=== PATIENT | male | born 1940 | race Caucasian/White ===

== ENCOUNTER 2017-04-10 16:41 | Inpatient (IN) | payer OTHER ==
[~2017-04-10] VITALS: Ht 180.3 cm; Wt 72.8 kg
[2017-04-10] VITALS (16 sets, daily range): BP systolic 125–145; BP diastolic 63–80; PULSE 79–113; TEMP 36.8–37.3; O2SAT 95–100; Ht 180.3 cm; Wt 72.8 kg
[~2017-04-10 16:41] MED LIST: ASPI-435 PO; INSDGI SC; MULT-884 PO; TAMS0.4C38 PO; VITA400C15 PO; ZCRT/40 PO
[2017-04-10] MEDS ORDERED: LISI-729 PO (17:05)
[2017-04-10] MEDS ORDERED: SODIUM CHLORIDE 0.9% 1000ML 1,000 ML IV STA (17:05)
[2017-04-10 17:53] LABS: PARTIAL THROMBOPLASTIN RATIO 0.8; PROTHROMBIN TIME (PATIENT) 10.7 SECONDS (9.0-12.0)
[2017-04-10 17:57] LABS: HEMATOCRIT 12.3 % (42-52); MEAN CELL VOLUME 91.1 fL (80-100); MEAN CORPUSCULAR HEMOGLOBIN 28.9 pg (25-34); MEAN CORPUSCULAR HGB CONC 31.7 g/dl (32-36); MEAN PLATELET VOLUME 8.2 fL (7.4-10.4); PLATELET COUNT 402 K/uL (130-400); RED BLOOD COUNT 1.35 M/uL (4.7-6.1); WHITE BLOOD COUNT 5.75 K/uL (4.8-10.8)
[2017-04-10] MEDS ORDERED: PANTOprazole INJ 80 MG in DEXTROSE 5% 100ML IV SCH (18:00)
[2017-04-10 18:03] LABS: BASO % 0.3 %; BASO ABS # 0.02 K/uL (0-0.2); COMPLETE YES; EOS % 0.5 %; HYPOCHROMIA PRESENT; IG% 0.2 %; LYMPH % 17.4 %; MONO % 10.4 %; NEUT % 71.2 %; POLYCHROMASIA 1+
[2017-04-10] MEDS ORDERED: PANTOprazole INJ 40 MG in DEXTROSE 5% 100ML IV SCH (18:15)
[2017-04-10] MEDS ORDERED: NSS + 20MEQ KCL 1000ML 1,000 ML IV SCH (18:18)
[2017-04-10 18:27] LABS: ALT/SGPT 18 U/L (12-78); AST/SGOT 15 U/L (15-37); BLOOD UREA NITROGEN 44 mg/dl (7-18); BUN/CREATININE RATIO 19.9 (10-20); CALCIUM 8.3 mg/dl (8.5-10.1); CARBON DIOXIDE 24 mmol/L (21-32); CHLORIDE 109 mmol/L (98-107); GLUCOSE 166 mg/dl (70-99); POTASSIUM 4.7 mmol/L (3.5-5.1); SODIUM 141 mmol/L (136-145)
[2017-04-10] MEDS ORDERED: ONDANSETRON INJ 2 MG/ML 2 ML VIAL IV PRN ×2 (18:30→19:00)
[2017-04-10] MEDS ORDERED: ALUMINUM/MAGNESIUM/SIMETH (MAALOX MAX) 30 ML UDC PO PRN (18:30)
[2017-04-10] MEDS ORDERED: ENOXAPARIN 40 MG/0.4 ML SYR SC SCH (18:30)
[2017-04-10 18:32] LABS: ALKALINE PHOSPHATASE 42 U/L (45-117)
[2017-04-10] MEDS ORDERED: IV FLUIDS COMPLETED PRN (18:45)
[2017-04-10] MEDS ORDERED: NITROGLYCERIN 0.4 MG SL PER TAB CHARGE SL PRN (19:00)
[2017-04-10] MEDS ORDERED: MoRPHine SULFATE 2 MG/ML CARP IV PRN (19:00)
[2017-04-10] MEDS ORDERED: DEXTROSE 50% 50 ML SYR IV PRN (19:15)
[2017-04-10] MEDS ORDERED: GLUCAGON FOR INJ 1 MG VIAL SQ PRN (19:15)
[2017-04-10] MEDS ORDERED: GLUCOSE 40% GEL 15 GM TUBE PO PRN (19:15)
[2017-04-10] MEDS ORDERED: GLUCOSE 10 TABS/TUBE PO PRN (19:15)
--- NOTE | 2017-04-10 20:04 | Critical Care Consultation ---
Critical Care Consultation Date of Consultation: Apr 10, 2017. Attending Physician: Dr. Kraft Reason for Consultation: Anemia secondary to GI Bleeding History of Present Illness Héctor Orosco is a 76 yo male with recent past medical history of prostatic CA; treatment with Lupron was attempted however patient could not tolerate hot flashes and its hyperglycemia. Therefore he underwent 44 treatments of radiation. Last treatment was 12/21/2015. Hx is also signifcant for DM2 with retinopathy, CKD stage III, and hyperlipidemia. He reports that approximately 1 -1/2 months ago he started to experience intermittent bloody stools that were dark and loose. He was at first not alarmed due to a history of hemorrhoids; however ,more recently he states that there has been more blood than stool. He went to his family doctor today based on recent symptoms of feeling dizzy and shortness of breath with minimal exertion. He stated to her that he estimates 75% of what he passes per the rectum his blood. He does pass gas during this period of time; however, he denies associated abdominal pain. He states to me today that since this illness has started his blood sugars have been out of control. He takes 20 units of Lantus at night only. He notes that his sugars lately have been greater than 200. He has had no change in urination. Once seen in the emergency department, patient's hemoglobin was determined to be 3.9. He was consented and ordered 4u PRBCs to transfuse immediately. Dr. Lino and I presented at bedside to examine pt. There was a thorough discussion about code status. Héctor stated, "I am not scared to go, I have had 74 good ones." He states he does not want any heroic measures, no CPR, no intubation, no central access. He was then transferred to the ICU with the first of four units transfusing. Pt denies fever, chills, trouble breathing, dypnea at rest, or cough. He denies chest pain/pressure, awareness of tachyarrhythmias, or history of them. He denies ever having a DVT of PE. He denies recent changes in urinary habits, numbness, or tingling. He admits to hematochezia time 1.5m. He has not had any loss of consciousness or falls. Past Medical/Surgical History Medical Problems: Anxiety and depression Diabetes: Type I Diabetic Retinopathy Kidney disease Overdose of anticonvulsant Profound anemia Hx of Prostate CA with radiation treatment Obstructive Uropathy Surgical History: Dental/Eye Procedures Family History Diabetes mellitus FH: cancer Social History Smoking Status: Never Smoker Smokeless Tobacco Use: No Alcohol Use: none Drug Use: none Marital Status: Housing Status: lives with family Occupation Status: retired Allergies Coded Allergies: No Known Allergies (Unverified , 04/10/17) Home Medications Scheduled Aspirin (Aspirin 81), 1 TAB PO DAILY Insulin Glargine (Lantus), 20 UNITS SC HS Lisinopril (Zestril), 5 MG PO QAM Multiple Vitamin (Multi Vitamin Daily), 1 TAB PO DAILY Simvastatin (Zocor), 1 TAB PO DAILY Current Inpatient Medications Current Inpatient Medications Medications (Trade) Dose Ordered Sig/Martha Route Start Time Stop Time Status Last Admin Dose Admin Pantoprazole Sodium 40 mg/ Dextrose 100 ml @ 20 mls/hr Q5H IV 04/10/17 18:15 04/10/17 23:14 04/10/17 18:07 20 MLS/HR Miscellaneous (Iv Fluids Completed) 1 ea PRN PRN N/A 04/10/17 18:45 04/10/18 18:44 Sodium Chloride 1,000 ml @ 80 mls/hr [id number] IV 04/10/17 18:58 05/10/17 18:57 UNV Nitroglycerin (Nitrostat Tab) 0.4 mg UD PRN SL 04/10/17 19:00 05/10/17 18:59 Ondansetron HCl (Zofran Inj) 4 mg Q6H PRN IV 04/10/17 19:00 05/10/17 18:59 Pantoprazole Sodium 40 mg/ Syringe 10 ml @ 5 mls/min BID IV 04/10/17 21:00 05/10/17 20:59 UNV Morphine Sulfate (MoRPHine SULFATE INJ) 2 mg Q2H PRN IV 04/10/17 19:00 04/24/17 18:59 Insulin Aspart (novoLOG ASPART) SLIDING SCALE G... ACHS SC 04/10/17 21:00 05/10/17 20:59 UNV Furosemide 20 mg/ Syringe 2 ml @ 4 mls/min UD ONCE IV 04/10/17 19:00 04/10/17 19:01 UNV Glucose (Glucose 40% Gel) 15-30 GRAMS 15 GRAMS... UD PRN PO 04/10/17 19:15 05/10/17 19:14 Glucose (Glucose Chew Tab) 4-8 Tablets 4 Tabl... UD PRN PO 04/10/17 19:15 05/10/17 19:14 Dextrose (Dextrose 50% 50ML Syringe) 25-50ML OF 50% DW IV FOR... UD PRN IV 04/10/17 19:15 05/10/17 19:14 Glucagon (Glucagon Inj) 1 mg UD PRN SQ 04/10/17 19:15 05/10/17 19:14 Review of Systems 12 systems reviewed and negative other than previously mentioned in the HPI. Physical Exam Date Time Temp Pulse Resp B/P (MAP) Pulse Ox O2 Delivery O2 Flow Rate FiO2 04/10/17 19:43 36.8 99 18 144/69 98 04/10/17 19:27 37.1 95 16 131/66 100 04/10/17 18:59 97 18 126/62 100 Room Air 04/10/17 17:28 92 04/10/17 17:22 100 Room Air 04/10/17 16:44 37.0 103 18 118/56 98 Room Air Vital Signs - as noted Laboratory Data - as noted Physical Exam: General - NAD, Very Pleasant resting in bed with at side Eyes - PERRL, EOMI No icterus, gaze conjugate ENT - Mucosa moist, no lesions or candidiasis Neck - Supple, trachea midline, no masses or lymphadenopathy, no JVD or bruits Lungs - No paradoxical chest wall movement, clear to auscultation bilaterally, no wheezes, rales, or rhonchi Heart - Normal Sinus to Sinus Tachycardia, No murmur, rubs, clicks, or gallops appreciated Abdomen - BS present, no bruits noted, tympanic to percussion, soft, nontender, nondistended, no organomegaly Extremities - No edema, pedal pulses intact Neuro - A&OX3 Strength extremities equal and appropriate bilaterally Reflexes: normal and equal Cerebellum: Finger to nose appropriate CN:PERRL, EOMI, no facial asymmetry, uvula/tongue midline Laboratory Results Last 24 Hours Test 04/10/17 17:25 04/10/17 19:29 White Blood Count 5.75 K/uL Red Blood Count 1.35 M/uL Hemoglobin 3.9 g/dL 3.7 g/dL Hematocrit 12.3 % 12.0 % Mean Corpuscular Volume 91.1 fL Mean Corpuscular Hemoglobin 28.9 pg Mean Corpuscular Hemoglobin Concent 31.7 g/dl Platelet Count 402 K/uL Mean Platelet Volume 8.2 fL Neutrophils (%) (Auto) 71.2 % Lymphocytes (%) (Auto) 17.4 % Monocytes (%) (Auto) 10.4 % Eosinophils (%) (Auto) 0.5 % Basophils (%) (Auto) 0.3 % Neutrophils # (Auto) 4.09 K/uL Lymphocytes # (Auto) 1.00 K/uL Monocytes # (Auto) 0.60 K/uL Eosinophils # (Auto) 0.03 K/uL Basophils # (Auto) 0.02 K/uL RDW Standard Deviation 46.4 fL RDW Coefficient of Variation 13.8 % Immature Granulocyte % (Auto) 0.2 % Immature Granulocyte # (Auto) 0.01 K/uL Polychromasia 1+ Hypochromasia PRESENT Prothrombin Time 10.7 SECONDS Prothromb Time International Ratio 1.0 Activated Partial Thromboplast Time 21.1 SECONDS Partial Thromboplastin Ratio 0.8 Sodium Level 141 mmol/L Potassium Level 4.7 mmol/L Chloride Level 109 mmol/L Carbon Dioxide Level 24 mmol/L Anion Gap 8.0 mmol/L Blood Urea Nitrogen 44 mg/dl Creatinine 2.20 mg/dl Est Creatinine Clear Calc Drug Dose 29.2 ml/min Estimated GFR () 33.0 Estimated GFR (Non- 28.5 BUN/Creatinine Ratio 19.9 Random Glucose 166 mg/dl Calcium Level 8.3 mg/dl Total Bilirubin 0.3 mg/dl Direct Bilirubin < 0.1 mg/dl Aspartate Amino Transf (AST/SGOT) 15 U/L Alanine Aminotransferase (ALT/SGPT) 18 U/L Alkaline Phosphatase 42 U/L Troponin I 0.045 ng/ml Total Protein 6.4 gm/dl Albumin 3.4 gm/dl Lipase 123 U/L Diagnostic Results No Imaging this admission Assessment & Plan GI: * Hematochezia x 1.5months; Hgb: 3.9 * Protonix Bolus and Drip: Continue * GI Consult pending: Colonoscopy is tentatively planned from Thursday * NPO except meds * GI prophylaxis: Protonix drip in place Heme: * Hgb 3.9 * Transfuse 4u PRBCs Now, will determine additional pending H&H results * HR, O2 Sats, and BP stable * Monitor closely for transfusion reaction * H&H q6h * DVT Prophylaxis: No chemical prophylaxis in the setting of GI bleed; SCDs /Electrolytes: * Acute Renal Failure on Chronic Kidney Dz * Cr. 2.2 (Baseline 1.8) * Follow daily labs & replace electrolytes per protocol * Continue Fluid Resuscitation: NSS @ 80mL/hr * Monitor I&O's Endocrine: * Type 1 DM: Accuchecks q 6hrs * Hold Lantus and begin Sliding Scale Coverage (NPO) * Accu-Checks per protocol, started insulin infusion for 2 blood sugars greater than 180 CV: * Monitor on telemetry * NSR on EKG and Telemetry * Holding Statin currently Pulm: * Supplemental oxygen as required * Adequate Saturations currently * Monitor on Telemetry I.D: * WBC: 5.75 & Afebrile * No indication for Abx at this time * Monitor fever curve Neuro: * Pain well controlled * Monitor for changes Access: Maintain at minimum to 18-gauge PIV's; patient denied central access CODE STATUS: Level [address] Lino CCT: 47 Minutes; This time is exclusive of all separately billable procedures. Thank you for involving us in the care of this patient. Please refer to Dr. Sudarshan Lino's addendum for further recommendations. I have personally evaluated and examined this patient. I agree with assessment and plan of Italia Reyna/W Dr. Sargent, slow GI bleeding to achieve this level of anemia. No EKG changes suggestive of ischemia.
--- NOTE | 2017-04-10 20:07 | HISTORY & PHYSICAL EXAMINATION ---
DATE OF ADMISSION: 04/10/2017 CHIEF COMPLAINT: Rectal bleeding. HISTORY OF PRESENT ILLNESS: This is a 76-year-old male with past medical history significant for diabetes, hyperlipidemia, chronic kidney disease stage III, history of diabetic retinopathy, history of prostatic cancer, presents with rectal bleed. The patient was diagnosed prostate cancer, but could not tolerate Lupron due to hot flushes and hyperglycemia and he received external beam radiation 44 sessions finished in December 2015 and apparently was doing okay,until since last about 4 weeks, he was developing bright blood per rectum on and off. Initially some small amounts and he thought he has hemorrhoids, but since last couple of weeks it is becoming more frequent and more significant and he is also developing dizziness and shortness of breath on minimal exertion and could not do his yard work when he went to his family doctor today. Because of his significant symptoms and rectal bleeding and history of radiation to his prostate, family doctor referred to the ER and in the ER, his labs showed his hemoglobin of 3.9, and creatinine of 2.2 and we were called for admission. Currently, the patient is resting comfortably, hemodynamically stable. Denies any abdominal pain. No nausea, no vomiting, no chest pain, complains of short of breath on minimal exertion, dizziness and has some headaches, no blurred vision, no cough, no fever, no chills. Appetite is okay, but seems comfortable.Last rectal bleeding was today morning at 8am. ALLERGIES: No known drug allergies. PAST MEDICAL HISTORY: As mentioned above. PAST SURGICAL HISTORY: Dental surgeries, eye procedures. MEDICATIONS: The patient is on simvastatin 40 mg p.o. daily, Lantus 20 units at bedtime, lisinopril 2.5 mg p.o. daily, aspirin 81 mg p.o. daily. FAMILY HISTORY: Significant for father had cancer, heart disorder. Mother had heart disorder. Aunt has diabetes. Maternal grandmother has diabetes. Son has glaucoma. SOCIAL HISTORY: Never smoked and alcohol rarely. No drug use. Lives with his . REVIEW OF SYMPTOMS: As per HPI. Rest of review of symptoms negative. PHYSICAL EXAMINATION: GENERAL: The patient is of moderate build, not in distress. VITAL SIGNS: Temperature 37, pulse 92, respiratory rate 18, blood pressure 118/56, oxygen 100% on room air. HEENT: Pallor present. No icterus. Pupils equal, round, and reactive to light. NECK: No JVD, no neck masses, no carotid bruits. CARDIOVASCULAR: S1, S2 heard, regular rate and rhythm, no murmur, no gallop. RESPIRATORY SYSTEM: Clear to auscultation bilaterally. No wheezing, no crackles. ABDOMEN: Soft, bowel sounds present. Nontender. No distention. CENTRAL NERVOUS SYSTEM: Cranial nerves II-XII are grossly intact. Nonfocal. EXTREMITIES: No edema, no erythema. LABORATORY DATA: WBC 5.7, hemoglobin 3.9, hematocrit 12.3, platelets 402. Sodium 141, potassium 4.7, chloride 109 , bicarbonate 24, BUN 44, creatinine 2.2, serum glucose 166, calcium 8.3. Total bilirubin 0.3, direct bilirubin less than 0.1, AST 15, ALT 18, alkaline phosphatase 42, troponin I 0.045. Lipase 123. PT 10.7, INR 1, PTT 21.1. ASSESSMENT AND PLAN: This is a 76-year-old male who presents with profound anemia. 1. Profound anemia, hemoglobin of 3.9. 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 The patient never had colonoscopies in the past. We will admit to ICU to close monitor.Will hold aspirin. Will transfuse PRBCs, recheck H &H q. 6 hours. IV Protonix 40 b.i.d. .Notified GI. The patient is hemodynamically stable. Plan is for colonoscopy on Thursday unless the patient deteriorates and advised for CAT scan of the abdomen and pelvis whenever the patient is more stable. Critical Care consulted. 2. History of diabetes Hba1c 6.7 in December 2016. We will hold his Lantus. We will place him on insulin sliding scale as the patient is currently n.p.o. and closely monitor his blood sugars. 3. History of hyperlipidemia. We will hold the statin for now. 4. Acute renal failure and chronic kidney disease, stage III, baseline creatinine around 1.8, creatinine of 2.2 on presentation, getting PRBCs transfusion and gentle fluids, we will follow the labs in a.m. 5. Deep venous thrombosis prophylaxis, SCDs. 6. Disposition: Close monitoring in ICU now. Level of code status, level 3. MTDD
[2017-04-10 20:32] LABS: URINE APPEARANCE CLEAR (CLEAR); URINE BILIRUBIN NEG (NEG); URINE COLOR YELLOW; URINE NITRITE NEG (NEG); UROBILINOGEN NEG (NEG)
[2017-04-10 20:34] LABS: MANUAL MICROSCOPIC REQUIRED? NO; REVIEW REQ? NO
[2017-04-10] MEDS ORDERED: INSULIN ASPART 100 UNITS/ML 3 ML PEN SC SCH (21:00)
[2017-04-10] MEDS ORDERED: PANTOprazole INJ 40 MG in SYRINGE 0 ML IV SCH (21:00)
[2017-04-10] MEDS ORDERED: FUROSEMIDE INJ 20 MG in SYRINGE 0 ML IV ONE (21:00)
[2017-04-10] MEDS ORDERED: INSULIN GLARGINE SOLOSTAR 100 UNITS/ML 3 ML PEN SC STA (22:23)
[2017-04-10] MEDS: SODIUM CHLORIDE 0.9% 1000ML 1,000 ML IV SCH (22:36)
[2017-04-10] MEDS: PANTOprazole INJ 40 MG in DEXTROSE 5% 100ML IV SCH (22:36)
[2017-04-11] VITALS (17 sets, daily range): BP systolic 111–151; BP diastolic 60–87; PULSE 61–98; TEMP 36.6–37.2; O2SAT 95–100
--- NOTE | 2017-04-11 00:37 | EMERGENCY ROOM VISIT NOTE ---
History Report prepared by Brian: Dominik Lopez Under the Supervision of: Dr. Awais Perry D.O. First contact with patient: 17:03 Chief Complaint: REFERRED BY DOCTOR Stated Complaint: DIZZY, DIARRHEA, FATIGUE- PHYSICIAN REFERRED History of Present Illness The patient is a 76 year old male who presents to the Emergency Room with complaints of intermittent diarrhea beginning two months ago. The patient states that his diarrhea consists of bright red blood, and he has anywhere from 6 to 10 episodes a day. He reports that he follows up with his oncologist because he was treated for prostate cancer. The patient notes that his last dose of treatment was 16 months ago. He states that he has not been backpacking , camping, travelling, or drinking from streams recently. The patient complains of weakness and fatigue. Pt denies headache, change in vision, fevers, chest pain, shortness of breath, nausea, vomiting, pain with urination, and melena. He states that he has only had a prostate exam, never a colonoscopy. Source of History: patient Onset: 2 months ago Position: buttock Quality: other (diarrhea) Timing: intermittent Associated Symptoms: + fatigue, + weakness Review of Systems See HPI for pertinent positives & negatives. A total of 10 systems reviewed and were otherwise negative. Past Medical & Surgical Medical Problems: (1) Anxiety and depression (2) Diabetes (3) Kidney disease (4) Overdose of anticonvulsant (5) Profound anemia Family History Diabetes mellitus FH: cancer Social History Smoking Status: Never Smoker Alcohol Use: none Drug Use: none Marital Status: Housing Status: lives with significant other Occupation Status: retired Current/Historical Medications Scheduled Aspirin (Aspirin 81), 1 TAB PO DAILY Insulin Glargine (Lantus), 20 UNITS SC HS Lisinopril (Zestril), 5 MG PO QAM Multiple Vitamin (Multi Vitamin Daily), 1 TAB PO DAILY Simvastatin (Zocor), 1 TAB PO DAILY Allergies Coded Allergies: No Known Allergies (Unverified , 04/10/17) Physical Exam Vital Signs Date Time Temp Pulse Resp B/P (MAP) Pulse Ox O2 Delivery O2 Flow Rate FiO2 04/10/17 18:59 97 18 126/62 100 Room Air 04/10/17 17:28 92 04/10/17 17:22 100 Room Air 04/10/17 16:44 37.0 103 18 118/56 98 Room Air Physical Exam GENERAL: alert, ill appearing, well nourished, no distress, non-toxic, pale, sitting up in bed EYE EXAM: normal conjunctiva, PERRL and EOM's grossly intact OROPHARYNX: no exudate, no erythema, lips, buccal mucosa, and tongue normal and mucous membranes are moist NECK: supple, no nuchal rigidity, no adenopathy, non-tender LUNGS: Clear to auscultation. Normal chest wall mechanics HEART: no murmurs, S1 normal and S2 normal ABDOMEN: abdomen soft, non-tender, normo-active bowel sounds, no masses, no rebound or guarding. BACK: Back is symmetrical on inspection and there is no deformity, no midline tenderness, no CVA tenderness. RECTAL: Hem positive stool, no external hemorrhoids SKIN: no rashes and no bruising UPPER EXTREMITIES: upper extremities are grossly normal. LOWER EXTREMITIES: No pitting edema. NEURO EXAM: Normal sensorium, cranial nerves II-XII intact, normal speech, no weakness of arms, no weakness of legs. Medical Decision & Procedures Laboratory Results 04/10/17 17:25 Red Blood Count 1.35, Mean Corpuscular Volume 91.1, Mean Corpuscular Hemoglobin 28.9, Mean Corpuscular Hemoglobin Concent 31.7, Mean Platelet Volume 8.2, Neutrophils (%) (Auto) 71.2, Lymphocytes (%) (Auto) 17.4, Monocytes (%) (Auto) 10.4, Eosinophils (%) (Auto) 0.5, Basophils (%) (Auto) 0.3, Neutrophils # (Auto ) 4.09, Lymphocytes # (Auto) 1.00, Monocytes # (Auto) 0.60, Eosinophils # (Auto ) 0.03, Basophils # (Auto) 0.02 04/10/17 17:25 Test 04/10/17 17:25 White Blood Count 5.75 K/uL (4.8-10.8) Red Blood Count 1.35 M/uL (4.7-6.1) Hemoglobin 3.9 g/dL (14.0-18.0) Hematocrit 12.3 % (42-52) Mean Corpuscular Volume 91.1 fL (80-100) Mean Corpuscular Hemoglobin 28.9 pg (25-34) Mean Corpuscular Hemoglobin Concent 31.7 g/dl (32-36) Platelet Count 402 K/uL (130-400) Mean Platelet Volume 8.2 fL (7.4-10.4) Neutrophils (%) (Auto) 71.2 % Lymphocytes (%) (Auto) 17.4 % Monocytes (%) (Auto) 10.4 % Eosinophils (%) (Auto) 0.5 % Basophils (%) (Auto) 0.3 % Neutrophils # (Auto) 4.09 K/uL (1.4-6.5) Lymphocytes # (Auto) 1.00 K/uL (1.2-3.4) Monocytes # (Auto) 0.60 K/uL (0.11-0.59) Eosinophils # (Auto) 0.03 K/uL (0-0.5) Basophils # (Auto) 0.02 K/uL (0-0.2) RDW Standard Deviation 46.4 fL (36.4-46.3) RDW Coefficient of Variation 13.8 % (11.5-14.5) Immature Granulocyte % (Auto) 0.2 % Immature Granulocyte # (Auto) 0.01 K/uL (0.00-0.02) Polychromasia 1+ Hypochromasia PRESENT Prothrombin Time 10.7 SECONDS (9.0-12.0) Prothromb Time International Ratio 1.0 (0.9-1.1) Activated Partial Thromboplast Time 21.1 SECONDS (21.0-31.0) Partial Thromboplastin Ratio 0.8 Anion Gap 8.0 mmol/L (3-11) Est Creatinine Clear Calc Drug Dose 29.2 ml/min Estimated GFR () 33.0 Estimated GFR (Non- 28.5 BUN/Creatinine Ratio 19.9 (10-20) Calcium Level 8.3 mg/dl (8.5-10.1) Total Bilirubin 0.3 mg/dl (0.2-1) Direct Bilirubin < 0.1 mg/dl (0-0.2) Aspartate Amino Transf (AST/SGOT) 15 U/L (15-37) Alanine Aminotransferase (ALT/SGPT) 18 U/L (12-78) Alkaline Phosphatase 42 U/L (45-117) Troponin I 0.045 ng/ml (0-0.045) Total Protein 6.4 gm/dl (6.4-8.2) Albumin 3.4 gm/dl (3.4-5.0) Lipase 123 U/L (73-393) Laboratory results per my review. Medications Administered Medications (Trade) Dose Ordered Sig/Martha Route Start Time Stop Time Status Last Admin Dose Admin Sodium Chloride 1,000 ml @ 999 mls/hr Q1H1M STAT IV 04/10/17 17:05 04/10/17 18:05 DC 04/10/17 18:08 999 MLS/HR Pantoprazole Sodium 80 mg/ Dextrose 120 ml @ 480 mls/hr UD IV 04/10/17 18:00 04/10/17 18:14 DC 04/10/17 18:07 480 MLS/HR Pantoprazole Sodium 40 mg/ Dextrose 100 ml @ 20 mls/hr Q5H IV 04/10/17 18:15 04/10/17 20:29 DC 04/10/17 18:07 20 MLS/HR Sodium Chloride 1,000 ml @ 80 mls/hr [id number] IV 04/10/17 18:58 05/10/17 18:57 04/10/17 22:36 80 MLS/HR ECG Indication: weakness Rate (beats per minute): 87 Rhythm: sinus rhythm Findings: no ectopy, other (normal axis) ED Course ED COURSE: Vital signs were reviewed and showed tachycardia. The patients medical record was reviewed The above diagnostic studies were performed and reviewed. ED treatments and interventions as stated above. 1705: Ordered Sodium Chloride 1000 ml @ 999 mls/hr IV 1722: The patient was evaluated in room A04B. A complete history and physical examination was performed. 1758: I reevaluated the patient and discussed his lab results. I consulted him for a blood transfusion. He approved of the transfer. His hemoglobin was 3.9. 1800: Ordered Pantoprazole Sodium 80 mg/Dextrose 120ml @ 480 mls/hr IV 181: Ordered Pantoprazole Sodium 40 mg/Dextrose 100ml @ 20 mls/hr IV 181: I spoke with Aman Rojas and discussed the patient's case. 182: Upon reevaluation, the patient is resting .I discussed my findings with the patient and he understands and agrees with the treatment plan. I discussed the patient's case with Aman Samayoa Hospitalist, and the patient will be evaluated for further treatment. He notes to resuscitate the patient, and he will have a colonoscopy performed on Thursday. Based on the patients age, coexisting illnesses, exam and lab findings the decision to treat as an inpatient was made. The patient remained stable while under my care. Medical Decision Differential diagnoses includes but is not limited to gastritis, peptic ulcer disease, GERD, gallbladder disease, pancreatitis, small bowel obstruction, acute coronary syndrome, pericarditis, ischemic bowel, irritable bowel disease, irritable bowel syndrome, appendicitis, diverticulitis, malignancy, hernia, urinary tract infection, torsion, perforation, trauma, infectious. Medication Reconciliation: I attest that I have personally reviewed the patient' s current medication list. Patient is a 76-year-old male who presents the ER for bright red blood per rectum for the past 1.5 months. Patient is pale and ill-appearing. Upon arrival he is slightly tachycardic. He was given a bolus normal saline. Hemoglobin was 3.9. Patient was ordered type and cross and given PRBCs while in the ER. He was in agreement with this. Patient remained stable while in the ER was admitted to internal medicine for GI bleed with symptomatically anemia. Consults Time Called: 1814 Consulting Physician: Aman Rojas Returned Call: [phone] I spoke with Aman Rojas and discussed the patient's case Additional Consults: Time Called: 1817 Consulted Physician: Aman Samayoa Returned Call: [phone] Additional Comments: I discussed the patient's case with Aman Samayoa, and the patient will be evaluated for further treatment. He notes to resuscitate the patient, and he will have a colonoscopy performed on Thursday. Impression Primary Impression: GI bleed Additional Impression: Symptomatic anemia Critical Care I have personally spent 35 minutes of critical care time in the direct management of this patient. This includes bedside care, interpretation of diagnostic studies, and testing, discussion with consultants, patient, and family members, and other required patient management activities. This 35 minutes is in excess of all separately billable procedures. Scribe Attestation The scribe's documentation has been prepared under my direction and personally reviewed by me in its entirety. I confirm that the note above accurately reflects all work, treatment, procedures, and medical decision making performed by me. Departure Information Dispostion Being Evaluated By Hospitalist Referrals Jerry Cardenas M.D. (PCP) Patient Instructions My [facility] Problem Qualifiers Primary Impression: GI bleed GI bleed type/associated pathology: unspecified gastrointestinal hemorrhage type Qualified Codes: K92.2 - Gastrointestinal hemorrhage, unspecified
[2017-04-11 03:00] LABS: HEMATOCRIT 24.6 % (42-52)
[2017-04-11] MEDS: PANTOprazole INJ 40 MG in DEXTROSE 5% 100ML IV SCH ×5 (03:29→21:52)
[2017-04-11 06:38] LABS: BASO % 0.3 %; BASO ABS # 0.02 K/uL (0-0.2); EOS % 1.8 %; HEMATOCRIT 23.6 % (42-52); IG% 0.2 %; LYMPH % 15.3 %; MEAN CELL VOLUME 87.1 fL (80-100); MEAN CORPUSCULAR HEMOGLOBIN 29.5 pg (25-34); MEAN PLATELET VOLUME 8.9 fL (7.4-10.4); NEUT % 71.4 %; PLATELET COUNT 281 K/uL (130-400); RED BLOOD COUNT 2.71 M/uL (4.7-6.1); WHITE BLOOD COUNT 6.54 K/uL (4.8-10.8)
[2017-04-11] MEDS: INSULIN ASPART 100 UNITS/ML 3 ML PEN SC SCH ×4 (06:45→20:57)
[2017-04-11 06:50] LABS: COMPLETE YES; MEAN CORPUSCULAR HGB CONC 33.9 g/dl (32-36)
[2017-04-11 07:06] LABS: BUN/CREATININE RATIO 18.4 (10-20); CALCIUM 7.8 mg/dl (8.5-10.1); CREATININE 2.1 mg/dl (0.60-1.40); MAGNESIUM 2.2 mg/dl (1.8-2.4); POTASSIUM 4.2 mmol/L (3.5-5.1)
--- NOTE | 2017-04-11 10:53 | GASTROINTESTINAL CONSULTATION ---
DATE OF CONSULTATION: 04/11/2017 DATE OF CONSULTATION: 04/11/2017. CHIEF COMPLAINT: Weakness and bright red blood per rectum. HISTORY OF PRESENT ILLNESS: The patient is a 76-year-old male with past medical history notable for diabetes and prostate cancer who presented to the Emergency Room yesterday evening with a complaint of shortness of breath, dyspnea on exertion and intermittent rectal bleeding. The patient notes that the rectal bleeding symptoms began 4 or 5 months ago. He describes having bright red blood from the rectum with each and every bowel movement. He initially thought that this may be related to hemorrhoids but the symptoms persisted despite evaluation by his primary care provider. The patient denies a history of colonoscopy and has never undergone a screening examination in the past. He does have a history of prostate cancer and underwent radiation therapy which completed approximately 1 year ago. The patient was admitted to the ICU overnight and given a transfusion. He notes that he feels much better this afternoon. PAST MEDICAL HISTORY: 1. Diabetes. 2. Hypercholesterolemia. 3. Chronic kidney disease. 4. Diabetic retinopathy. 5. Prostate cancer. PAST SURGICAL HISTORY: Dental surgery, eye surgery. No abdominal surgeries. ALLERGIES: No drug allergies. OUTPATIENT MEDICATIONS: 1. Simvastatin 40 mg at bedtime. 2. Lantus insulin 20 units at bedtime. 3. Lisinopril 2.5 mg daily. 4. Aspirin 81 mg daily. FAMILY HISTORY: Father with cancer of unknown type and cardiac disease. Mother with a history of cardiac disease. No family history of colorectal cancer known. SOCIAL HISTORY: The patient is a nonsmoker, drinks alcohol occasionally. Denies any IV drug use. REVIEW OF SYSTEMS: GENERAL: No fevers, no chills. CARDIAC: No chest pain or palpitations. PULMONARY: The patient with shortness of breath upon admission. GASTROINTESTINAL: Please see history of present illness. GENITOURINARY: No dysuria. MUSCULOSKELETAL: No new joint pains or muscle pains. ENDOCRINE: The patient followed for diabetes with retinopathy and neuropathy. EARS, NOSE, THROAT: No difficulty swallowing, pain with swallowing. DERMATOLOGIC: No rashes. No itching noted by patient. NEUROLOGIC: No headaches, no double vision. PHYSICAL EXAMINATION: VITAL SIGNS: Temperature 36.6, pulse 61, respiratory rate 16, blood pressure is 127/65. HEAD, EYES, EARS, NOSE, AND THROAT: No scleral icterus noted. No JVD noted. LUNGS: Clear to auscultation. CARDIAC: Regular rhythm with a faint systolic murmur heard. ABDOMEN: Soft, nontender. EXTREMITIES: No edema noted. LABORATORY DATA: On admission, white blood cell count 5.75, hemoglobin 3.9, hematocrit is 12.3, platelet count is 402. This morning, hemoglobin is 8.0, hematocrit is 23.6. PT 10.7, INR 1.0. Chemistries: Sodium 143, potassium is 4.2, chloride is 111, BUN 39, creatinine 2.1, calcium is 7.8. AST 15, ALT 18, alkaline phosphatase 42, troponin 0.045, albumin 3.4. IMPRESSION: A 76-year-old male admitted with recurrent hematochezia resulting in significant anemia. 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 I would suggest further evaluation with colonoscopy on Thursday. I would also highly recommend an imaging study of the abdomen to include a CT scan to evaluate for an occult malignancy. RECOMMENDATIONS: 1. Liquid diet this . Bowel preparation to be given on Thursday evening. Given renal insufficiency the patient will need GoLYTELY. 2. Consider CT of the abdomen. Please call with any questions or concerns over the weekend. EVELYN
[2017-04-11 11:11] LABS: FERRITIN 11.3 ng/ml (8.0-388.0)
--- NOTE | 2017-04-11 11:11 | Critical Care Progress Note ---
Critical Care Progress Note Date of Service Apr 11, 2017. ICU Day ICU Day Number: [address] Lino Subjective Feeling much improved no dyspnea and no chest pain has not had a bowel movement overnight Current SOFA Score SOFA Score Response (Comments) Value Platelets (x10) > 150 0 Bilirubin (mg/dL) < 1.2 0 [place] Coma Score 15 0 Level of Hypotension No Hypotension 0 Creatinine (mg/dL) 2.0 - 3.4 2 Total 2 Assessment & Plan (1) Profound anemia Improve status post 4 units of blood transfused (2) GI bleed (3) Symptomatic anemia (4) Prostate cancer (5) Diabetes Written for clear diet Continue to monitor blood sugars started with half dose of daily home Lantus given patient was previously nothing by mouth Stable for downgraded from ICU to telemetry service given that this is a chronic gastrointestinal bleed Consults & Procedures Consultants: Gastroenterology Procedures: EGD planned 04/13/2017 Data Medications: Current Inpatient Medications Medications (Trade) Dose Ordered Sig/Martha Route Start Time Stop Time Status Last Admin Dose Admin Miscellaneous (Iv Fluids Completed) 1 ea PRN PRN N/A 04/10/17 18:45 04/10/18 18:44 Sodium Chloride 1,000 ml @ 80 mls/hr [id number] IV 04/10/17 18:58 05/10/17 18:57 04/10/17 22:36 80 MLS/HR Nitroglycerin (Nitrostat Tab) 0.4 mg UD PRN SL 04/10/17 19:00 05/10/17 18:59 Ondansetron HCl (Zofran Inj) 4 mg Q6H PRN IV 04/10/17 19:00 05/10/17 18:59 Morphine Sulfate (MoRPHine SULFATE INJ) 2 mg Q2H PRN IV 04/10/17 19:00 04/24/17 18:59 Glucose (Glucose 40% Gel) 15-30 GRAMS 15 GRAMS... UD PRN PO 04/10/17 19:15 05/10/17 19:14 Glucose (Glucose Chew Tab) 4-8 Tablets 4 Tabl... UD PRN PO 04/10/17 19:15 05/10/17 19:14 Dextrose (Dextrose 50% 50ML Syringe) 25-50ML OF 50% DW IV FOR... UD PRN IV 04/10/17 19:15 7/9/17 19:14 Glucagon (Glucagon Inj) 1 mg UD PRN SQ 04/10/17 19:15 05/10/17 19:14 Pantoprazole Sodium 40 mg/ Dextrose 100 ml @ 20 mls/hr Q5H IV 04/10/17 21:15 05/10/17 21:14 04/11/17 08:15 20 MLS/HR Insulin Aspart (novoLOG ASPART) SLIDING SCALE G... ACHS SC 04/11/17 06:45 05/11/17 06:44 Vital Signs: Date Time Temp Pulse Resp B/P (MAP) Pulse Ox O2 Delivery O2 Flow Rate FiO2 04/11/17 10:02 98 22 151/67 (95) 96 04/11/17 08:00 95 Room Air 04/11/17 08:00 36.6 61 16 127/65 (85) 95 Room Air 04/11/17 06:02 76 19 130/77 (94) Room Air 04/11/17 04:02 37.1 72 13 130/80 (97) 96 Room Air 04/11/17 04:00 97 Room Air 04/11/17 02:02 73 14 128/72 (90) 95 04/11/17 01:51 37.2 78 13 150/80 97 04/11/17 01:30 37.1 76 14 111/87 97 04/11/17 01:00 37.0 77 12 134/70 97 04/11/17 00:37 36.8 81 14 141/68 98 04/11/17 00:19 36.8 80 15 139/73 96 04/11/17 00:00 36.8 79 12 131/66 96 04/10/17 23:59 97 Room Air 04/10/17 23:30 36.8 91 16 137/75 98 04/10/17 23:01 36.9 86 16 125/66 98 04/10/17 23:00 36.8 83 13 130/80 98 04/10/17 22:30 37.3 81 10 125/66 98 04/10/17 22:02 37.2 93 26 130/68 (88) 100 Room Air 04/10/17 22:00 37.2 79 15 130/68 98 04/10/17 21:45 36.9 81 16 133/73 97 Room Air 04/10/17 21:31 37.2 85 18 138/63 98 04/10/17 21:25 37.0 89 19 131/77 97 04/10/17 21:15 36.9 86 16 133/73 99 04/10/17 21:00 36.9 113 14 144/78 95 04/10/17 20:48 36.9 93 17 145/72 100 04/10/17 20:14 37.3 88 18 131/69 98 04/10/17 19:43 36.8 99 18 144/69 98 04/10/17 19:27 37.1 95 16 131/66 100 04/10/17 18:59 97 18 126/62 100 Room Air 04/10/17 17:28 92 04/10/17 17:22 100 Room Air 04/10/17 16:44 37.0 103 18 118/56 98 Room Air Laboratory Results: Last 24 Hours Test 04/10/17 17:25 04/10/17 19:29 04/10/17 20:10 04/10/17 23:17 White Blood Count 5.75 K/uL Red Blood Count 1.35 M/uL Hemoglobin 3.9 g/dL 3.7 g/dL Hematocrit 12.3 % 12.0 % Mean Corpuscular Volume 91.1 fL Mean Corpuscular Hemoglobin 28.9 pg Mean Corpuscular Hemoglobin Concent 31.7 g/dl Platelet Count 402 K/uL Mean Platelet Volume 8.2 fL Neutrophils (%) (Auto) 71.2 % Lymphocytes (%) (Auto) 17.4 % Monocytes (%) (Auto) 10.4 % Eosinophils (%) (Auto) 0.5 % Basophils (%) (Auto) 0.3 % Neutrophils # (Auto) 4.09 K/uL Lymphocytes # (Auto) 1.00 K/uL Monocytes # (Auto) 0.60 K/uL Eosinophils # (Auto) 0.03 K/uL Basophils # (Auto) 0.02 K/uL RDW Standard Deviation 46.4 fL RDW Coefficient of Variation 13.8 % Immature Granulocyte % (Auto) 0.2 % Immature Granulocyte # (Auto) 0.01 K/uL Polychromasia 1+ Hypochromasia PRESENT Prothrombin Time 10.7 SECONDS Prothromb Time International Ratio 1.0 Activated Partial Thromboplast Time 21.1 SECONDS Partial Thromboplastin Ratio 0.8 Sodium Level 141 mmol/L Potassium Level 4.7 mmol/L Chloride Level 109 mmol/L Carbon Dioxide Level 24 mmol/L Anion Gap 8.0 mmol/L Blood Urea Nitrogen 44 mg/dl Creatinine 2.20 mg/dl Est Creatinine Clear Calc Drug Dose 29.2 ml/min Estimated GFR () 33.0 Estimated GFR (Non- 28.5 BUN/Creatinine Ratio 19.9 Random Glucose 166 mg/dl Calcium Level 8.3 mg/dl Total Bilirubin 0.3 mg/dl Direct Bilirubin < 0.1 mg/dl Aspartate Amino Transf (AST/SGOT) 15 U/L Alanine Aminotransferase (ALT/SGPT) 18 U/L Alkaline Phosphatase 42 U/L Troponin I 0.045 ng/ml Total Protein 6.4 gm/dl Albumin 3.4 gm/dl Lipase 123 U/L Urine Color YELLOW Urine Appearance CLEAR Urine pH 5.0 Urine Specific [place] 1.020 Urine Protein NEG Urine Glucose (UA) 1+ Urine Ketones NEG Urine Occult Blood NEG Urine Nitrite NEG Urine Bilirubin NEG Urine Urobilinogen NEG Urine Leukocyte Esterase NEG Bedside Glucose 141 mg/dl Test 04/11/17 02:27 04/11/17 05:31 04/11/17 06:21 04/11/17 10:35 Hemoglobin 8.2 g/dL 8.0 g/dL Hematocrit 24.6 % 23.6 % Bedside Glucose 87 mg/dl White Blood Count 6.54 K/uL Red Blood Count 2.71 M/uL Mean Corpuscular Volume 87.1 fL Mean Corpuscular Hemoglobin 29.5 pg Mean Corpuscular Hemoglobin Concent 33.9 g/dl Platelet Count 281 K/uL Mean Platelet Volume 8.9 fL Neutrophils (%) (Auto) 71.4 % Lymphocytes (%) (Auto) 15.3 % Monocytes (%) (Auto) 11.0 % Eosinophils (%) (Auto) 1.8 % Basophils (%) (Auto) 0.3 % Neutrophils # (Auto) 4.67 K/uL Lymphocytes # (Auto) 1.00 K/uL Monocytes # (Auto) 0.72 K/uL Eosinophils # (Auto) 0.12 K/uL Basophils # (Auto) 0.02 K/uL RDW Standard Deviation 49.3 fL RDW Coefficient of Variation 15.3 % Immature Granulocyte % (Auto) 0.2 % Immature Granulocyte # (Auto) 0.01 K/uL Sodium Level 143 mmol/L Potassium Level 4.2 mmol/L Chloride Level 111 mmol/L Carbon Dioxide Level 22 mmol/L Anion Gap 10.0 mmol/L Blood Urea Nitrogen 39 mg/dl Creatinine 2.10 mg/dl Est Creatinine Clear Calc Drug Dose 30.0 ml/min Estimated GFR () 34.9 Estimated GFR (Non- 30.1 BUN/Creatinine Ratio 18.4 Random Glucose 78 mg/dl Calcium Level 7.8 mg/dl Magnesium Level 2.2 mg/dl Problem Qualifiers (1) Profound anemia: Iron deficiency anemia type: chronic blood loss (2) GI bleed: GI bleed type/associated pathology: unspecified gastrointestinal hemorrhage type Qualified Codes: K92.2 - Gastrointestinal hemorrhage, unspecified (3) Diabetes: Diabetes mellitus complication status: with kidney complications Diabetes mellitus 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
[2017-04-11] MEDS: SODIUM CHLORIDE 0.9% 1000ML 1,000 ML IV SCH ×2 (11:27→20:59)
--- NOTE | 2017-04-11 12:42 | DIAGNOSTIC IMAGING REPORT ---
CT OF THE ABDOMEN AND PELVIS WITHOUT CONTRAST CLINICAL HISTORY: Anemia. Hematochezia. Evaluate for colonic mass. Prostate cancer. COMPARISON STUDY: CT of the abdomen and pelvis September 03, 2015. TECHNIQUE: Axial images of the abdomen and pelvis were obtained without IV contrast. Images were reviewed in the axial, sagittal, and coronal planes. FINDINGS: Visualized portions of the lower chest demonstrate trace bilateral pleural effusions with associated subsegmental atelectasis. There is mild interlobular septal thickening. No pneumatosis, free air or portal venous gas is present. Evaluation of the abdomen and pelvis is suboptimal on this unenhanced exam. Unenhanced images of the liver, spleen, adrenal glands, right kidney and pancreas are unremarkable. A few left renal calculi measure up to 4 mm. There are no ureteral calculi and there is no hydronephrosis. No biliary or pancreatic ductal dilatation is present. No enlarged lymph nodes are identified on this unenhanced exam. There is made of mild wall thickening of the proximal to mid rectum with mild perirectal infiltration. There is no free air or abscess. There is sigmoid diverticulosis without evidence for acute diverticulitis. Sensitivity for detection of mucosal lesions is diminished on this unenhanced exam. There is no evidence for a bowel obstruction. There is a moderate amount of stool within the colon. The prostate is mildly enlarged. No suspicious osseous lesions are identified. There is decreased attenuation of the blood pool within the heart consistent with known anemia. IMPRESSION: 1. Mild wall thickening of the proximal to mid rectum with mild perirectal infiltration. This favors a nonspecific proctitis. A neoplastic process could appear similar and this could be correlated with colonoscopy. 2. No bowel obstruction. Moderate amount of stool within the colon. 3. Trace bilateral pleural effusions and mild pulmonary edema. 4. Suboptimal evaluation for mucosal lesions given CT technique and lack of IV contrast. 5. Left-sided nephrolithiasis. Electronically signed by: Lawrence Barnes M.D. 04/11/2017 12:40 PM Dictated Date/Time: 04/11/2017 12:27 PM
[2017-04-11 13:12] LABS: HEMATOCRIT 24.2 % (42-52)
[2017-04-11] MEDS: RASPBERRY SYRUP 5 ML UDP PO SCH ×2 (17:46→20:58)
[2017-04-11] MEDS: VANCOMYCIN HCL 125 MG/2.5ML SOLN PO SCH ×2 (17:46→20:58)
--- NOTE | 2017-04-11 18:33 | Progress Note ---
Internal Med Progress Note Date of Service: Apr 11, 2017. Provider Documentation: SUBJECTIVE: feeling better no more bloody bowel movements so far afebrile wants to eat hemodynamics stable want to sit on the chair OBJECTIVE: Vital Signs-as noted below Exam: General-alert and awake. Not in distress ENT-Normal hearing Neck-no neck masses, supple Lungs-cta b/l no wheezing or crackles Heart-s1 and s2 heard regular , no murmurs Abdomen-soft bowel sounds present non tender no distension Extremities- no edema present no erythema Neuro-alert and awake moves extremities Lab data as noted below. ASSESSMENT & PLAN: This is a 76-year-old male who presents with profound anemia. 1. Profound anemia,Presented with hemoglobin of 3.9. 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 The patient never had colonoscopies in the past. s/p four units of prbc transfused hb 8.[address] scan in am GI on board and appreciate inputs appreciate critical care help. 2. History of diabetes Hba1c 6.7 in December 2016. Holding Lantus. ISS. will monitor. 3. History of hyperlipidemia. We will hold the statin for now. 4. Acute renal failure and chronic kidney disease, stage III, baseline creatinine around 1.8, creatinine of 2.2 on presentation, cr 2.1 today. 5. Deep venous thrombosis prophylaxis, SCDs. 6. Disposition: Transfer to medical floor. . Level of code status, level 3. Vital Signs: Date Time Temp Pulse Resp B/P (MAP) Pulse Ox O2 Delivery O2 Flow Rate FiO2 04/11/17 17:00 37.1 66 18 136/76 (96) 100 Room Air 04/11/17 16:00 95 Room Air 04/11/17 12:02 36.9 66 14 117/60 (79) 97 Room Air 04/11/17 12:00 97 Room Air 04/11/17 10:02 98 22 151/67 (95) 96 04/11/17 08:00 95 Room Air 04/11/17 08:00 36.6 61 16 127/65 (85) 95 Room Air 04/11/17 06:02 76 19 130/77 (94) Room Air 04/11/17 04:02 37.1 72 13 130/80 (97) 96 Room Air 04/11/17 04:00 97 Room Air 04/11/17 02:02 73 14 128/72 (90) 95 04/11/17 01:51 37.2 78 13 150/80 97 04/11/17 01:30 37.1 76 14 111/87 97 04/11/17 01:00 37.0 77 12 134/70 97 04/11/17 00:37 36.8 81 14 141/68 98 04/11/17 00:19 36.8 80 15 139/73 96 04/11/17 00:00 36.8 79 12 131/66 96 04/10/17 23:59 97 Room Air 04/10/17 23:30 36.8 91 16 137/75 98 04/10/17 23:01 36.9 86 16 125/66 98 04/10/17 23:00 36.8 83 13 130/80 98 04/10/17 22:30 37.3 81 10 125/66 98 04/10/17 22:02 37.2 93 26 130/68 (88) 100 Room Air 04/10/17 22:00 37.2 79 15 130/68 98 04/10/17 21:45 36.9 81 16 133/73 97 Room Air 04/10/17 21:31 37.2 85 18 138/63 98 04/10/17 21:25 37.0 89 19 131/77 97 04/10/17 21:15 36.9 86 16 133/73 99 04/10/17 21:00 36.9 113 14 144/78 95 04/10/17 20:48 36.9 93 17 145/72 100 04/10/17 20:14 37.3 88 18 131/69 98 04/10/17 19:43 36.8 99 18 144/69 98 04/10/17 19:27 37.1 95 16 131/66 100 04/10/17 18:59 97 18 126/62 100 Room Air Lab Results: Results Past 24 Hours Test 04/10/17 19:29 04/10/17 20:10 04/10/17 23:17 04/11/17 02:27 Range/Units Hemoglobin 3.7 8.2 14.0-18.0 g/dL Hematocrit 12.0 24.6 42-52 % Urine Color YELLOW Urine Appearance CLEAR CLEAR Urine pH 5.0 4.5-7.5 Urine Specific [place] 1.020 1.000-1.030 Urine Protein NEG NEG Urine Glucose (UA) 1+ NEG Urine Ketones NEG NEG Urine Occult Blood NEG NEG Urine Nitrite NEG NEG Urine Bilirubin NEG NEG Urine Urobilinogen NEG NEG Urine Leukocyte Esterase NEG NEG Bedside Glucose 141 70-99 mg/dl Test 04/11/17 05:31 04/11/17 06:21 04/11/17 10:35 04/11/17 11:26 Range/Units Bedside Glucose 87 169 70-99 mg/dl White Blood Count 6.54 4.8-10.8 K/uL Red Blood Count 2.71 4.7-6.1 M/uL Hemoglobin 8.0 14.0-18.0 g/dL Hematocrit 23.6 42-52 % Mean Corpuscular Volume 87.1 80-100 fL Mean Corpuscular Hemoglobin 29.5 25-34 pg Mean Corpuscular Hemoglobin Concent 33.9 32-36 g/dl Platelet Count 281 130-400 K/uL Mean Platelet Volume 8.9 7.4-10.4 fL Neutrophils (%) (Auto) 71.4 % Lymphocytes (%) (Auto) 15.3 % Monocytes (%) (Auto) 11.0 % Eosinophils (%) (Auto) 1.8 % Basophils (%) (Auto) 0.3 % Neutrophils # (Auto) 4.67 1.4-6.5 K/uL Lymphocytes # (Auto) 1.00 1.2-3.4 K/uL Monocytes # (Auto) 0.72 0.11-0.59 K/uL Eosinophils # (Auto) 0.12 0-0.5 K/uL Basophils # (Auto) 0.02 0-0.2 K/uL RDW Standard Deviation 49.3 36.4-46.3 fL RDW Coefficient of Variation 15.3 11.5-14.5 % Immature Granulocyte % (Auto) 0.2 % Immature Granulocyte # (Auto) 0.01 0.00-0.02 K/uL Sodium Level 143 136-145 mmol/L Potassium Level 4.2 3.5-5.1 mmol/L Chloride Level 111 98-107 mmol/L Carbon Dioxide Level 22 21-32 mmol/L Anion Gap 10.0 3-11 mmol/L Blood Urea Nitrogen 39 7-18 mg/dl Creatinine 2.10 0.60-1.40 mg/dl Est Creatinine Clear Calc Drug Dose 30.0 ml/min Estimated GFR () 34.9 Estimated GFR (Non- 30.1 BUN/Creatinine Ratio 18.4 10-20 Random Glucose 78 70-99 mg/dl Calcium Level 7.8 8.5-10.1 mg/dl Magnesium Level 2.2 1.8-2.4 mg/dl Total Iron Binding Capacity 357 250-450 mcg/dl Ferritin 11.3 8.0-388.0 ng/ml Test 04/11/17 13:03 04/11/17 16:39 Range/Units Hemoglobin 8.2 14.0-18.0 g/dL Hematocrit 24.2 42-52 % Bedside Glucose 90 70-99 mg/dl Microbiology Results 04/10/17 MRSA DNA Surveillance Screen - Final, Complete Specimen Negative for MRSA by DNA Probe 04/11/17 C.difficile Toxin B Gene (PCR) - Final, Complete Positive for C. difficile toxin B gene 04/11/17 Shiga Toxin Test, Received Pending 04/11/17 Stool Culture, Received Pending
[2017-04-11 19:36] LABS: HEMATOCRIT 24.9 % (42-52)
[2017-04-12] VITALS (13 sets, daily range): BP systolic 120–176; BP diastolic 62–103; PULSE 60–96; TEMP 36.8–37.1; O2SAT 96–100
[2017-04-12 01:25] LABS: HEMATOCRIT 25.5 % (42-52)
[2017-04-12] MEDS: PANTOprazole INJ 40 MG in DEXTROSE 5% 100ML IV SCH ×4 (03:00→19:33)
[2017-04-12] MEDS: INSULIN ASPART 100 UNITS/ML 3 ML PEN SC SCH ×4 (07:00→21:00)
[2017-04-12 07:04] LABS: BASO % 0.2 %; BASO ABS # 0.01 K/uL (0-0.2); EOS % 7.4 %; HEMATOCRIT 23.8 % (42-52); IG% 0.2 %; LYMPH % 16.7 %; LYMPH ABS # 0.81 K/uL (1.2-3.4); MEAN CELL VOLUME 88.8 fL (80-100); MEAN CORPUSCULAR HEMOGLOBIN 29.5 pg (25-34); MEAN PLATELET VOLUME 8.5 fL (7.4-10.4); MONO % 14.9 %; NEUT % 60.6 %; PLATELET COUNT 281 K/uL (130-400); RED BLOOD COUNT 2.68 M/uL (4.7-6.1); WHITE BLOOD COUNT 4.84 K/uL (4.8-10.8)
[2017-04-12 07:06] LABS: MEAN CORPUSCULAR HGB CONC 33.2 g/dl (32-36)
[2017-04-12 07:26] LABS: COMPLETE YES
[2017-04-12 07:35] LABS: BUN/CREATININE RATIO 14.4 (10-20); CALCIUM 7.5 mg/dl (8.5-10.1); CREATININE 1.9 mg/dl (0.60-1.40); MAGNESIUM 2.2 mg/dl (1.8-2.4); POTASSIUM 3.9 mmol/L (3.5-5.1)
[2017-04-12] MEDS: VANCOMYCIN HCL 125 MG/2.5ML SOLN PO SCH ×4 (08:51→21:10)
[2017-04-12] MEDS: RASPBERRY SYRUP 5 ML UDP PO SCH ×4 (08:51→21:10)
--- NOTE | 2017-04-12 09:33 | Gastroenterology Progress Note ---
Progress Note Date of Service: Apr 12, 2017 Subjective Pt evaluation today including: conversation w/ patient, physical exam The patient notes feeling improved today. He was found to be C. difficile positive on recent stool studies and advanced now on therapy with vancomycin 4 times daily. Given his profound anemia and prolonged history of hematochezia we are still planning for colonoscopy in the near future. Review of Systems Constitutional: No fever, No chills, No weight loss Respiratory: No cough, No shortness of breath, No dyspnea at rest Cardiac: + claudication, No chest pain, No PND, No palpitations Medications Current Inpatient Medications Medications (Trade) Dose Ordered Sig/Martha Route Start Time Stop Time Status Last Admin Dose Admin Miscellaneous (Iv Fluids Completed) 1 ea PRN PRN N/A 04/10/17 18:45 04/10/18 18:44 Sodium Chloride 1,000 ml @ 80 mls/hr [id number] IV 04/10/17 18:58 05/10/17 18:57 04/11/17 20:59 80 MLS/HR Nitroglycerin (Nitrostat Tab) 0.4 mg UD PRN SL 04/10/17 19:00 05/10/17 18:59 Ondansetron HCl (Zofran Inj) 4 mg Q6H PRN IV 04/10/17 19:00 05/10/17 18:59 Morphine Sulfate (MoRPHine SULFATE INJ) 2 mg Q2H PRN IV 04/10/17 19:00 04/24/17 18:59 Glucose (Glucose 40% Gel) 15-30 GRAMS 15 GRAMS... UD PRN PO 04/10/17 19:15 05/10/17 19:14 Glucose (Glucose Chew Tab) 4-8 Tablets 4 Tabl... UD PRN PO 04/10/17 19:15 05/10/17 19:14 Dextrose (Dextrose 50% 50ML Syringe) 25-50ML OF 50% DW IV FOR... UD PRN IV 04/10/17 19:15 05/10/17 19:14 Glucagon (Glucagon Inj) 1 mg UD PRN SQ 04/10/17 19:15 05/10/17 19:14 Pantoprazole Sodium 40 mg/ Dextrose 100 ml @ 20 mls/hr Q5H IV 04/10/17 21:15 05/10/17 21:14 04/12/17 08:31 20 MLS/HR Insulin Aspart (novoLOG ASPART) SLIDING SCALE G... ACHS SC 04/11/17 06:45 05/11/17 06:44 04/11/17 11:29 2 UNITS Polyethylene Glycol/ Electrolytes (Golytely Soln) 1 dose TODAY@1800 ONCE PO 04/12/17 18:00 04/12/17 18:01 Vancomycin HCl (Vancomycin Oral Soln) 125 mg QID PO 04/11/17 17:00 04/25/17 16:59 04/12/17 08:51 125 MG Raspberry (Raspberry Syrup 5ml Cup) 5 ml QID PO 04/11/17 17:00 04/25/17 16:59 04/12/17 08:51 5 ML Acetaminophen (Tylenol Tab) 650 mg UD ONCE PO 04/12/17 09:30 04/12/17 09:31 UNV Furosemide 20 mg/ Syringe 2 ml @ 4 mls/min UD ONCE IV 04/12/17 09:30 04/12/17 09:31 UNV Objective Vital Signs Date Time Temp Pulse Resp B/P (MAP) Pulse Ox O2 Delivery O2 Flow Rate FiO2 04/12/17 07:26 37.0 76 20 135/76 (95) 99 Room Air 04/12/17 04:00 Room Air 04/12/17 03:05 37.1 75 21 120/65 (83) 98 Room Air 04/12/17 00:00 Room Air 04/12/17 00:00 37.0 71 19 125/69 (87) 97 04/11/17 20:00 Room Air 04/11/17 19:54 36.7 75 18 145/72 (96) 99 Room Air 04/11/17 17:00 37.1 66 18 136/76 (96) 100 Room Air 04/11/17 16:00 95 Room Air 04/11/17 12:02 36.9 66 14 117/60 (79) 97 Room Air 04/11/17 12:00 97 Room Air 04/11/17 10:02 98 22 151/67 (95) 96 Physical Exam General Appearance: no apparent distress Eyes: PERRL Neck: no JVD Respiratory/Chest: lungs clear Cardiovascular: no gallop, + systolic murmur Abdomen: soft Neurologic/Psych: alert, oriented x 3 Skin: no jaundice Patient presenting with a long history of hematochezia found to have C. difficile infection. 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 Recommendations 14 day course of therapy for C. difficile with vancomycin Colonoscopy scheduled for Thursday Please call with any questions or concerns Laboratory Results Last 24 Hours Test 04/11/17 10:35 04/11/17 11:26 04/11/17 13:03 04/11/17 16:39 Total Iron Binding Capacity 357 mcg/dl Ferritin 11.3 ng/ml Bedside Glucose 169 mg/dl 90 mg/dl Hemoglobin 8.2 g/dL Hematocrit 24.2 % Test 04/11/17 19:30 04/11/17 19:55 04/12/17 01:01 04/12/17 06:57 Hemoglobin 8.3 g/dL 8.3 g/dL Hematocrit 24.9 % 25.5 % Bedside Glucose 131 mg/dl 101 mg/dl Test 04/12/17 06:58 White Blood Count 4.84 K/uL Red Blood Count 2.68 M/uL Hemoglobin 7.9 g/dL Hematocrit 23.8 % Mean Corpuscular Volume 88.8 fL Mean Corpuscular Hemoglobin 29.5 pg Mean Corpuscular Hemoglobin Concent 33.2 g/dl Platelet Count 281 K/uL Mean Platelet Volume 8.5 fL Neutrophils (%) (Auto) 60.6 % Lymphocytes (%) (Auto) 16.7 % Monocytes (%) (Auto) 14.9 % Eosinophils (%) (Auto) 7.4 % Basophils (%) (Auto) 0.2 % Neutrophils # (Auto) 2.93 K/uL Lymphocytes # (Auto) 0.81 K/uL Monocytes # (Auto) 0.72 K/uL Eosinophils # (Auto) 0.36 K/uL Basophils # (Auto) 0.01 K/uL RDW Standard Deviation 51.6 fL RDW Coefficient of Variation 15.8 % Immature Granulocyte % (Auto) 0.2 % Immature Granulocyte # (Auto) 0.01 K/uL Sodium Level 143 mmol/L Potassium Level 3.9 mmol/L Chloride Level 112 mmol/L Carbon Dioxide Level 23 mmol/L Anion Gap 8.0 mmol/L Blood Urea Nitrogen 27 mg/dl Creatinine 1.90 mg/dl Est Creatinine Clear Calc Drug Dose 35.0 ml/min Estimated GFR () 39.4 Estimated GFR (Non- 34.0 BUN/Creatinine Ratio 14.4 Random Glucose 94 mg/dl Calcium Level 7.5 mg/dl Magnesium Level 2.2 mg/dl
[2017-04-12] MEDS ORDERED: ACETAMINOPHEN 325 MG TAB PO SCH (10:00)
[2017-04-12] MEDS ORDERED: FUROSEMIDE INJ 20 MG in SYRINGE 0 ML IV SCH (11:00)
[2017-04-12] MEDS: SODIUM CHLORIDE 0.9% 1000ML 1,000 ML IV SCH ×2 (13:13→21:11)
[2017-04-12] MEDS ORDERED: LAVAGE SOLUTION 4000ML PO ONE (18:00)
--- NOTE | 2017-04-12 18:10 | Progress Note ---
Internal Med Progress Note Date of Service: Apr 12, 2017. Provider Documentation: SUBJECTIVE: resting comfortably afebrile had couple of bloody bowel movements yesterday denies chest pain or sob OBJECTIVE: Vital Signs-as noted below Exam: General-alert and awake. Not in distress ENT-Normal hearing Neck-no neck masses, supple Lungs-cta b/l no wheezing or crackles Heart-s1 and s2 heard regular , no murmurs Abdomen-soft bowel sounds present non tender no distension Extremities- no edema present no erythema Neuro-alert and awake moves extremities Lab data as noted below. ASSESSMENT & PLAN: This is a 76-year-old male who presents with profound anemia hb 3.9.Mostly radiation proctitis. s/p 6units prbc. C diff positive on po vancomycin. GI plans for colonoscopy in am. . 1. Profound anemia,Presented with hemoglobin of 3.9 on 04/10/17. 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 The patient never had colonoscopies in the past. s/p four units of prbc transfused hb 8.2 04/11/17 GI on board and appreciate inputs appreciate critical care help. 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 2. History of diabetes Hba1c 6.7 in December 2016. Holding Lantus. ISS. will monitor. 3. History of hyperlipidemia. We will hold the statin for now. 4. Acute renal failure and chronic kidney disease, stage III, baseline creatinine around 1.8, creatinine of 2.2 on presentation, cr 1.9 today. 5. Deep venous thrombosis prophylaxis, SCDs. 6. Disposition: Monitor in tele floor.. . Level of code status, level 3. Vital Signs: Date Time Temp Pulse Resp B/P (MAP) Pulse Ox O2 Delivery O2 Flow Rate FiO2 04/12/17 19:25 36.8 65 18 176/87 (116) 100 Room Air 04/12/17 17:13 65 16 148/103 100 04/12/17 16:38 85 16 143/79 100 04/12/17 16:00 Room Air 04/12/17 15:43 69 16 143/79 99 04/12/17 15:10 37.1 60 20 129/70 99 04/12/17 12:32 85 16 128/62 98 04/12/17 12:00 Room Air 04/12/17 11:59 96 18 144/80 98 04/12/17 11:26 95 18 144/70 99 04/12/17 11:12 36.9 62 16 135/73 99 04/12/17 11:10 36.9 76 20 135/73 (93) 96 Room Air 04/12/17 08:00 Room Air 04/12/17 07:26 37.0 76 20 135/76 (95) 99 Room Air 04/12/17 04:00 Room Air 04/12/17 03:05 37.1 75 21 120/65 (83) 98 Room Air 04/12/17 00:00 Room Air 04/12/17 00:00 37.0 71 19 125/69 (87) 97 Lab Results: Results Past 24 Hours Test 04/12/17 01:01 04/12/17 06:57 04/12/17 06:58 04/12/17 11:10 Range/Units Hemoglobin 8.3 7.9 14.0-18.0 g/dL Hematocrit 25.5 23.8 42-52 % Bedside Glucose 101 152 70-99 mg/dl White Blood Count 4.84 4.8-10.8 K/uL Red Blood Count 2.68 4.7-6.1 M/uL Mean Corpuscular Volume 88.8 80-100 fL Mean Corpuscular Hemoglobin 29.5 25-34 pg Mean Corpuscular Hemoglobin Concent 33.2 32-36 g/dl Platelet Count 281 130-400 K/uL Mean Platelet Volume 8.5 7.4-10.4 fL Neutrophils (%) (Auto) 60.6 % Lymphocytes (%) (Auto) 16.7 % Monocytes (%) (Auto) 14.9 % Eosinophils (%) (Auto) 7.4 % Basophils (%) (Auto) 0.2 % Neutrophils # (Auto) 2.93 1.4-6.5 K/uL Lymphocytes # (Auto) 0.81 1.2-3.4 K/uL Monocytes # (Auto) 0.72 0.11-0.59 K/uL Eosinophils # (Auto) 0.36 0-0.5 K/uL Basophils # (Auto) 0.01 0-0.2 K/uL RDW Standard Deviation 51.6 36.4-46.3 fL RDW Coefficient of Variation 15.8 11.5-14.5 % Immature Granulocyte % (Auto) 0.2 % Immature Granulocyte # (Auto) 0.01 0.00-0.02 K/uL Sodium Level 143 136-145 mmol/L Potassium Level 3.9 3.5-5.1 mmol/L Chloride Level 112 98-107 mmol/L Carbon Dioxide Level 23 21-32 mmol/L Anion Gap 8.0 3-11 mmol/L Blood Urea Nitrogen 27 7-18 mg/dl Creatinine 1.90 0.60-1.40 mg/dl Est Creatinine Clear Calc Drug Dose 35.0 ml/min Estimated GFR () 39.4 Estimated GFR (Non- 34.0 BUN/Creatinine Ratio 14.4 10-20 Random Glucose 94 70-99 mg/dl Calcium Level 7.5 8.5-10.1 mg/dl Magnesium Level 2.2 1.8-2.4 mg/dl Test 04/12/17 16:11 04/12/17 18:37 Range/Units Bedside Glucose 135 70-99 mg/dl Hemoglobin 10.6 14.0-18.0 g/dL Hematocrit 31.8 42-52 %
[2017-04-12] MEDS ORDERED: FUROSEMIDE INJ 20 MG in SYRINGE 0 ML IV ONE (18:15)
[2017-04-12 18:44] LABS: HEMATOCRIT 31.8 % (42-52)
[2017-04-13] VITALS (8 sets, daily range): BP systolic 105–145; BP diastolic 66–94; PULSE 59–75; TEMP 36.6–37.7; O2SAT 96–100
[2017-04-13] MEDS: PANTOprazole INJ 40 MG in DEXTROSE 5% 100ML IV SCH ×5 (00:34→20:53)
[2017-04-13 06:31] LABS: BASO % 0.2 %; BASO ABS # 0.01 K/uL (0-0.2); COMPLETE YES; EOS % 5.5 %; HEMATOCRIT 28.5 % (42-52); IG% 0.4 %; LYMPH % 22.8 %; LYMPH ABS # 1.11 K/uL (1.2-3.4); MEAN CELL VOLUME 87.4 fL (80-100); MEAN CORPUSCULAR HEMOGLOBIN 29.4 pg (25-34); MEAN CORPUSCULAR HGB CONC 33.7 g/dl (32-36); MEAN PLATELET VOLUME 8.4 fL (7.4-10.4); MONO % 10.9 %; NEUT % 60.2 %; PLATELET COUNT 265 K/uL (130-400); RED BLOOD COUNT 3.26 M/uL (4.7-6.1); WHITE BLOOD COUNT 4.87 K/uL (4.8-10.8)
[2017-04-13 06:55] LABS: BUN/CREATININE RATIO 11.3 (10-20); CALCIUM 7.3 mg/dl (8.5-10.1); CREATININE 1.8 mg/dl (0.60-1.40); POTASSIUM 3.7 mmol/L (3.5-5.1)
[2017-04-13] MEDS: INSULIN ASPART 100 UNITS/ML 3 ML PEN SC SCH ×4 (07:00→20:53)
[2017-04-13] MEDS: RASPBERRY SYRUP 5 ML UDP PO SCH ×4 (09:04→20:53)
[2017-04-13] MEDS: VANCOMYCIN HCL 125 MG/2.5ML SOLN PO SCH ×4 (09:04→20:54)
--- NOTE | 2017-04-13 10:56 | Progress Note ---
Internal Med Progress Note Date of Service: Apr 13, 2017. Provider Documentation: SUBJECTIVE: The patient was seen and examined Feels a lot better today Has had bowel movement with small amount of Blood getting bowel preparation for Colonoscopy today OBJECTIVE: Vital Signs-as noted below Exam: General-no distress at rest Eyes-normal ENT-normal Neck-supple Lungs-clear to auscultate bilaterally Heart-Regular,no murmur appreciated Abdomen-Benign,no masses,bowel sound present Extremities-No edema Neuro-AAOx3 No focal sensory and or motor deficit Lab data as noted below. ASSESSMENT & PLAN: Acute Blood Loss Anemia Acute On Chronic Rectal bleeding likely secondary to Radiation Proctitis and complicated by C Diff Colitis Presented with hemoglobin of 3.9 on 04/10/17. Finished RT in December with 44 sessions of radiation to his prostate, The patient never had colonoscopies in the past. Received 6 Units of PRBC so far Hb 9.6 on 04/13/17 Appreciate GI input Colonoscopy today -04/13/17 C Diff Colitis Complicating BRBPR On oral Vancomycin History of diabetes Hba1c 6.7 in December 2016. Hold Lantus. ISS. Hyperlipidemia. Hold the statin for now. Acute renal failure and chronic kidney disease, stage III, Baseline creatinine around 1.8, creatinine of 2.2 on presentation, Monitor Deep venous thrombosis prophylaxis, SCDs. Disposition: Monitor in tele floor.. Code Status-DNR Vital Signs: Date Time Temp Pulse Resp B/P (MAP) Pulse Ox O2 Delivery O2 Flow Rate FiO2 04/13/17 08:15 37.0 59 20 140/66 (90) 96 04/13/17 08:00 Room Air 04/13/17 04:00 Room Air 04/13/17 03:07 37.7 68 20 145/78 (100) 97 Room Air 04/13/17 00:01 37.0 67 21 143/70 (94) 98 Room Air 04/13/17 00:00 Room Air 04/12/17 20:00 Room Air 04/12/17 19:25 36.8 65 18 176/87 (116) 100 Room Air 04/12/17 17:13 65 16 148/103 100 04/12/17 16:38 85 16 143/79 100 04/12/17 16:00 Room Air 04/12/17 15:43 69 16 143/79 99 04/12/17 15:10 37.1 60 20 129/70 99 04/12/17 12:32 85 16 128/62 98 04/12/17 12:00 Room Air 04/12/17 11:59 96 18 144/80 98 04/12/17 11:26 95 18 144/70 99 04/12/17 11:12 36.9 62 16 135/73 99 04/12/17 11:10 36.9 76 20 135/73 (93) 96 Room Air Lab Results: Results Past 24 Hours Test 04/12/17 11:10 04/12/17 16:11 04/12/17 18:37 04/12/17 20:30 Range/Units Bedside Glucose 152 135 118 70-99 mg/dl Hemoglobin 10.6 14.0-18.0 g/dL Hematocrit 31.8 42-52 % Test 04/13/17 06:03 04/13/17 06:52 Range/Units White Blood Count 4.87 4.8-10.8 K/uL Red Blood Count 3.26 4.7-6.1 M/uL Hemoglobin 9.6 14.0-18.0 g/dL Hematocrit 28.5 42-52 % Mean Corpuscular Volume 87.4 80-100 fL Mean Corpuscular Hemoglobin 29.4 25-34 pg Mean Corpuscular Hemoglobin Concent 33.7 32-36 g/dl Platelet Count 265 130-400 K/uL Mean Platelet Volume 8.4 7.4-10.4 fL Neutrophils (%) (Auto) 60.2 % Lymphocytes (%) (Auto) 22.8 % Monocytes (%) (Auto) 10.9 % Eosinophils (%) (Auto) 5.5 % Basophils (%) (Auto) 0.2 % Neutrophils # (Auto) 2.93 1.4-6.5 K/uL Lymphocytes # (Auto) 1.11 1.2-3.4 K/uL Monocytes # (Auto) 0.53 0.11-0.59 K/uL Eosinophils # (Auto) 0.27 0-0.5 K/uL Basophils # (Auto) 0.01 0-0.2 K/uL RDW Standard Deviation 49.6 36.4-46.3 fL RDW Coefficient of Variation 15.5 11.5-14.5 % Immature Granulocyte % (Auto) 0.4 % Immature Granulocyte # (Auto) 0.02 0.00-0.02 K/uL Sodium Level 147 136-145 mmol/L Potassium Level 3.7 3.5-5.1 mmol/L Chloride Level 110 98-107 mmol/L Carbon Dioxide Level 28 21-32 mmol/L Anion Gap 9.0 3-11 mmol/L Blood Urea Nitrogen 20 7-18 mg/dl Creatinine 1.80 0.60-1.40 mg/dl Est Creatinine Clear Calc Drug Dose 38.1 ml/min Estimated GFR () 42.0 Estimated GFR (Non- 36.3 BUN/Creatinine Ratio 11.3 10-20 Random Glucose 102 70-99 mg/dl Calcium Level 7.3 8.5-10.1 mg/dl Magnesium Level 2.0 1.8-2.4 mg/dl Bedside Glucose 104 70-99 mg/dl
[2017-04-13] MEDS ORDERED: LIDOCAINE HCL 2% 2 ML VIAL (20MG/ML) ONE (11:12)
[2017-04-13] MEDS ORDERED: PROPOFOL IV EMULSION 10 MG/ML 20 ML VIAL IV ONE (11:12)
--- NOTE | 2017-04-13 12:00 | GI REPORT ---
Procedure Date: 04/13/2017 11:28 AM Procedure: Colonoscopy Indications: Hematochezia, Iron deficiency anemia secondary to chronic blood loss Medicines: Monitored Anesthesia Care Complications: No immediate complications. Estimated blood loss: Minimal. Estimated Blood Loss: Estimated blood loss was minimal. Procedure: Pre-Anesthesia Assessment: - Prior to the procedure, a History and Physical was performed, and patient medications, allergies and sensitivities were reviewed. The patient's tolerance of previous anesthesia was reviewed. - The risks and benefits of the procedure and the sedation options and risks were discussed with the patient. All questions were answered and informed consent was obtained. - Patient identification and proposed procedure were verified prior to the procedure by the physician, the nurse and the electrical & instrumentation supervisor. The procedure was verified in the procedure room. - Pre-procedure physical examination revealed no contraindications to sedation. - ASA Grade Assessment: III - A patient with severe systemic disease. - After reviewing the risks and benefits, the patient was deemed in satisfactory condition to undergo the procedure. - The anesthesia plan was to use general anesthesia. - Immediately prior to administration of medications, the patient was re-assessed for adequacy to receive sedatives. - The heart rate, respiratory rate, oxygen saturations, blood pressure, adequacy of pulmonary ventilation, and response to care were monitored throughout the procedure. - The physical status of the patient was re-assessed after the procedure. After I obtained informed consent, the scope was passed under direct vision. Throughout the procedure, the patient's blood pressure, pulse, and oxygen saturations were monitored continuously. The scope was introduced through the anus and advanced to the terminal ileum. The colonoscopy was performed without difficulty. The patient tolerated the procedure well. The quality of the bowel preparation was fair. Findings: The perianal and digital rectal examinations were normal. Pertinent negatives include normal sphincter tone. The terminal ileum appeared normal. A 6 mm polyp was found in the ascending colon. The polyp was sessile. The polyp was removed with a cold snare. Resection and retrieval were complete. Estimated blood loss was minimal. Many small and large-mouthed diverticula were found in the sigmoid colon and in the descending colon. Diffuse moderate inflammation characterized by adherent blood, congestion (edema), erythema and granularity was found in the rectum. Biopsies were taken with a cold forceps for histology. Estimated blood loss was minimal. Multiple medium-sized diffuse angioectasias with bleeding were found in the rectum. Coagulation for hemostasis using argon plasma at 1 liter/minute and 20 shaffer was successful. Estimated blood loss was minimal. Impression: - The examined portion of the ileum was normal. - One 6 mm polyp in the ascending colon, removed with a cold snare. Resected and retrieved. - Mild diverticulosis in the sigmoid colon and in the descending colon. - Diffuse moderate inflammation was found in the rectum secondary to proctitis (C diff infection). Biopsied. - Multiple bleeding colonic angioectasias. Treated with argon plasma coagulation (APC). Recommendation: - Return patient to hospital re[facility] for ongoing care. - Resume regular diet today. - Await pathology results. - Repeat colonoscopy in 3 months for retreatment. - Return to GI office in 3 months. Caden Gutierrez D.O. Caden Gutierrez, 04/13/2017 11:59:50 AM This report has been signed electronically. Note Initiated On: 04/13/2017 11:28 AM I attest to the content of the Intraoperative Record and orders documented therein, exceptions below
--- NOTE | 2017-04-13 12:16 | Anesthesiology Progress Note ---
Anesthesia Post Op Note Date & Time Apr 13, 2017 at 12:15 Vital Signs Pain Intensity: 0.0 Vital Signs Past 12 Hours Date Time Temp Pulse Resp B/P (MAP) Pulse Ox O2 Delivery O2 Flow Rate FiO2 04/13/17 12:10 68 20 140/63 (88) 99 Room Air 04/13/17 11:56 36.8 57 20 94/54 (67) 98 Nasal Cannula 2 04/13/17 11:17 36.8 74 20 147/69 (95) 99 Room Air 04/13/17 08:15 37.0 59 20 140/66 (90) 96 04/13/17 08:00 Room Air 04/13/17 04:00 Room Air 04/13/17 03:07 37.7 68 20 145/78 (100) 97 Room Air Notes Mental Status: alert / awake / arousable, participated in evaluation Pt Amnestic to Procedure: Yes Nausea / Vomiting: adequately controlled Pain: adequately controlled Airway Patency, RR, SpO2: stable & adequate BP & HR: stable & adequate Hydration State: stable & adequate Anesthetic Complications: no major complications apparent
--- NOTE | 2017-04-13 14:29 | Progress Note ---
Progress Note Date of Service Apr 13, 2017. Progress Note Colonoscopy results 1) 1 colon polyp 2) radiation proctitis 3) proctitis (biopsied), likely related to C diff Recomendations: Iron supplement for 8-12 weeks 2 week course of vancoymycin 125 mg QID repeat colonoscopy in 3 months
[2017-04-13] MEDS: SODIUM CHLORIDE 0.9% 1000ML 1,000 ML IV SCH (17:18)
[2017-04-14] MEDS: PANTOprazole INJ 40 MG in DEXTROSE 5% 100ML IV SCH ×2 (02:37→07:41)
[2017-04-14] MEDS: SODIUM CHLORIDE 0.9% 1000ML 1,000 ML IV SCH (02:37)
[2017-04-14 04:00] VITALS: O2SAT 99
[2017-04-14 04:04] VITALS: BP 134/64; PULSE 77; TEMP 37; O2SAT 96
[2017-04-14] MEDS: INSULIN ASPART 100 UNITS/ML 3 ML PEN SC SCH ×2 (07:00→11:00)
[2017-04-14 07:34] VITALS: BP 141/95; PULSE 76; TEMP 37; O2SAT 99
[2017-04-14] MEDS: VANCOMYCIN HCL 125 MG/2.5ML SOLN PO SCH ×2 (07:46→12:46)
[2017-04-14 07:47] LABS: BASO % 0.2 %; BASO ABS # 0.01 K/uL (0-0.2); COMPLETE YES; EOS % 5.2 %; HEMATOCRIT 29.9 % (42-52); IG% 0.2 %; LYMPH % 12.1 %; LYMPH ABS # 0.67 K/uL (1.2-3.4); MEAN CELL VOLUME 89.3 fL (80-100); MEAN CORPUSCULAR HEMOGLOBIN 29.6 pg (25-34); MEAN CORPUSCULAR HGB CONC 33.1 g/dl (32-36); MEAN PLATELET VOLUME 8.9 fL (7.4-10.4); MONO % 14.2 %; NEUT % 68.1 %; PLATELET COUNT 283 K/uL (130-400); RED BLOOD COUNT 3.35 M/uL (4.7-6.1); WHITE BLOOD COUNT 5.56 K/uL (4.8-10.8)
[2017-04-14] MEDS: RASPBERRY SYRUP 5 ML UDP PO SCH ×2 (07:47→12:46)
[2017-04-14 08:18] LABS: BUN/CREATININE RATIO 9.8 (10-20); CREATININE 1.6 mg/dl (0.60-1.40); MAGNESIUM 1.8 mg/dl (1.8-2.4); POTASSIUM 3.8 mmol/L (3.5-5.1)
[2017-04-14 08:49] LABS: CALCIUM 7.5 mg/dl (8.5-10.1)
[2017-04-14 11:50] VITALS: BP 139/71; PULSE 67; TEMP 37; O2SAT 99
--- NOTE | 2017-04-14 12:24 | Progress Note ---
Internal Med Progress Note Date of Service: Apr 14, 2017. Provider Documentation: SUBJECTIVE: The patient was seen and examined Feels a lot better today Has had bowel movement with small amount of Blood S/P Colonoscopy -Radiation Proctitis OBJECTIVE: Vital Signs-as noted below Exam: General-no distress at rest Eyes-normal ENT-normal Neck-supple Lungs-clear to auscultate bilaterally Heart-Regular,no murmur appreciated Abdomen-Benign,no masses,bowel sound present Extremities-No edema Neuro-AAOx3 No focal sensory and or motor deficit Lab data as noted below. ASSESSMENT & PLAN: Acute Blood Loss Anemia Acute On Chronic Rectal bleeding likely secondary to Radiation Proctitis and complicated by C Diff Colitis Presented with hemoglobin of 3.9 on 04/10/17. Finished RT in December with 44 sessions of radiation to his prostate, The patient never had colonoscopies in the past. Received 6 Units of PRBC so far Hb 9.6 on 04/13/17 Appreciate GI input Colonoscopy today -04/13/17:Radiation Proctitis.single 6 cm Polyp removed C Diff Colitis Complicating BRBPR On oral Vancomycin History of diabetes Hba1c 6.7 in December 2016. Hold Lantus. ISS. Hyperlipidemia. Hold the statin for now. Acute renal failure and chronic kidney disease, stage III, Baseline creatinine around 1.8, creatinine of 2.2 on presentation, Monitor Deep venous thrombosis prophylaxis, SCDs. Disposition: Monitor in tele floor.. Code Status-DNR Will discharge home today Vital Signs: Date Time Temp Pulse Resp B/P (MAP) Pulse Ox O2 Delivery O2 Flow Rate FiO2 04/14/17 12:56 37.0 67 18 99 Room Air 04/14/17 11:50 37.0 67 18 139/71 (93) 99 Room Air 04/14/17 08:00 Room Air Lab Results: Results Past 24 Hours Test 04/14/17 11:16 Range/Units Bedside Glucose 133 70-99 mg/dl
[2017-04-14] MEDS ORDERED: LCTX PO (12:28)
[2017-04-14] MEDS ORDERED: FRRS300 PO (12:28)
[2017-04-14] MEDS ORDERED: VNCS125 PO (12:28)
--- NOTE | 2017-04-14 12:31 | Discharge Instructions ---
Discharge Instructions Date of Service Apr 14, 2017. Admission Reason for Admission: Profound Anemia Discharge Discharge Diagnosis / Problem: C Diff Colitis,Radiation Proctitis Discharge Goals Goal(s): Prevent Disease Progression Activity Recommendations Activity Limitations: resume your previous activity . Instructions / Follow-Up Instructions / Follow-Up Dr Terrell ( Dr Cardenas is away) on 04/20/17 at 10:45 AM . Current Hospital Diet Patient's current hospital diet: Diabetes Type 2 Diet Discharge Diet Recommended Diet: Diabetes Type 2 Diet Procedures Procedures Performed: colon with biopsies polyp and hemastasis Pending Studies Studies pending at discharge: no Medical Emergencies . Who to Call and When: Medical Emergencies: If at any time you feel your situation is an emergency, please call 911 immediately. . Non-Emergent Contact Non-Emergency issues call your: Primary Care Provider . Past History Medical & Surgical History: (1) C. difficile colitis (2) Radiation proctitis (3) Profound anemia (4) Anxiety and depression . "Provider Documentation" section prepared by Lisa Fernandez. . VTE Core Measure Inpt VTE Proph given/why not?: SCD's
[2017-04-14 12:56] VITALS: BP 139/71; PULSE 67; TEMP 37; O2SAT 99
--- NOTE | 2017-04-14 16:41 | Discharge Summary ---
Discharge Summary Date of Service Apr 14, 2017. Discharge Summary Admission Date: Apr 10, 2017 at 19:07 Discharge Date: Apr 14, 2017 Discharge Disposition: Home Principal Diagnosis: C Diff Colitis,Radiation Proctitis,Acute Blood Loss Anemia s/p 6 units PRBC administration Secondary Diagnoses/Problems: Please see H&P and Hospital Progress note Procedures: Colonoscopy Consultations: GI Medication Reconciliation New Medications: Lactobacillus Acidophilus (Lactinex) Tab 2 TAB PO BID, #40 TAB Ferrous Sulfate (Ferrous Sulfate) 325 Mg Tab 325 MG PO BIDM for 30 Days, #60 TAB Vancomycin HCl (Vancomycin HCl) 125 Mg/2.5 Ml Susp 125 MG PO QID for 10 Days, #40 Continued Medications: Aspirin (Aspirin 81) 81 Mg Tab 1 TAB PO DAILY Insulin Glargine (Lantus) 100 Unit/Ml Inj 20 UNITS SC HS Lisinopril (Zestril) 5 Mg Tab 5 MG PO QAM, TAB Multiple Vitamin (Multi Vitamin Daily) 1 Tab Tab 1 TAB PO DAILY Simvastatin (Zocor) 40 Mg Tab 1 TAB PO DAILY for 90 Days, #90 TAB 1 Refill Admission Information HPI (per Admitting provider): DATE OF ADMISSION: 04/10/2017 CHIEF COMPLAINT: Rectal bleeding. HISTORY OF PRESENT ILLNESS: This is a 76-year-old male with past medical history significant for diabetes, hyperlipidemia, chronic kidney disease stage III, history of diabetic retinopathy, history of prostatic cancer, presents with rectal bleed. The patient was diagnosed prostate cancer, but could not tolerate Lupron due to hot flushes and hyperglycemia and he received external beam radiation 44 sessions finished in December 2015 and apparently was doing okay,until since last about 4 weeks, he was developing bright blood per rectum on and off. Initially some small amounts and he thought he has hemorrhoids, but since last couple of weeks it is becoming more frequent and more significant and he is also developing dizziness and shortness of breath on minimal exertion and could not do his yard work when he went to his family doctor today. Because of his significant symptoms and rectal bleeding and history of radiation to his prostate, family doctor referred to the ER and in the ER, his labs showed his hemoglobin of 3.9, and creatinine of 2.2 and we were called for admission. Currently, the patient is resting comfortably, hemodynamically stable. Denies any abdominal pain. No nausea, no vomiting, no chest pain, complains of short of breath on minimal exertion, dizziness and has some headaches, no blurred vision, no cough, no fever, no chills. Appetite is okay, but seems comfortable.Last rectal bleeding was today morning at 8am. ALLERGIES: No known drug allergies. PAST MEDICAL HISTORY: As mentioned above. PAST SURGICAL HISTORY: Dental surgeries, eye procedures. MEDICATIONS: The patient is on simvastatin 40 mg p.o. daily, Lantus 20 units at bedtime, lisinopril 2.5 mg p.o. daily, aspirin 81 mg p.o. daily. FAMILY HISTORY: Significant for father had cancer, heart disorder. Mother had heart disorder. Aunt has diabetes. Maternal grandmother has diabetes. Son has glaucoma. SOCIAL HISTORY: Never smoked and alcohol rarely. No drug use. Lives with his . REVIEW OF SYMPTOMS: As per HPI. Rest of review of symptoms negative. PHYSICAL EXAMINATION: GENERAL: The patient is of moderate build, not in distress. VITAL SIGNS: Temperature 37, pulse 92, respiratory rate 18, blood pressure 118/56, oxygen 100% on room air. HEENT: Pallor present. No icterus. Pupils equal, round, and reactive to light. NECK: No JVD, no neck masses, no carotid bruits. CARDIOVASCULAR: S1, S2 heard, regular rate and rhythm, no murmur, no gallop. RESPIRATORY SYSTEM: Clear to auscultation bilaterally. No wheezing, no crackles. ABDOMEN: Soft, bowel sounds present. Nontender. No distention. CENTRAL NERVOUS SYSTEM: Cranial nerves II-XII are grossly intact. Nonfocal. EXTREMITIES: No edema, no erythema. LABORATORY DATA: WBC 5.7, hemoglobin 3.9, hematocrit 12.3, platelets 402. Sodium 141, potassium 4.7, chloride 109 , bicarbonate 24, BUN 44, creatinine 2.2, serum glucose 166, calcium 8.3. Total bilirubin 0.3, direct bilirubin less than 0.1, AST 15, ALT 18, alkaline phosphatase 42, troponin I 0.045. Lipase 123. PT 10.7, INR 1, PTT 21.1. ASSESSMENT AND PLAN: This is a 76-year-old male who presents with profound anemia. 1. Profound anemia, hemoglobin of 3.9. 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 The patient never had colonoscopies in the past. We will admit to ICU to close monitor.Will hold aspirin. Will transfuse PRBCs, recheck H &H q. 6 hours. IV Protonix 40 b.i.d. .Notified GI. The patient is hemodynamically stable. Plan is for colonoscopy on Thursday unless the patient deteriorates and advised for CAT scan of the abdomen and pelvis whenever the patient is more stable. Critical Care consulted. 2. History of diabetes Hba1c 6.7 in December 2016. We will hold his Lantus. We will place him on insulin sliding scale as the patient is currently n.p.o. and closely monitor his blood sugars. 3. History of hyperlipidemia. We will hold the statin for now. 4. Acute renal failure and chronic kidney disease, stage III, baseline creatinine around 1.8, creatinine of 2.2 on presentation, getting PRBCs transfusion and gentle fluids, we will follow the labs in a.m. 5. Deep venous thrombosis prophylaxis, SCDs. 6. Disposition: Close monitoring in ICU now. Level of code status, level 3. Hospital Course Acute Blood Loss Anemia Acute On Chronic Rectal bleeding likely secondary to Radiation Proctitis and complicated by C Diff Colitis Presented with hemoglobin of 3.9 on 04/10/17. Finished RT in December with 44 sessions of radiation to his prostate, The patient never had colonoscopies in the past. Received 6 Units of PRBC so far Hb 9.6 on 04/13/17 Appreciate GI input Colonoscopy today -04/13/17 C Diff Colitis Complicating BRBPR On oral Vancomycin History of diabetes Hba1c 6.7 in December 2016. Hold Lantus. ISS. Hyperlipidemia. Hold the statin for now. Acute renal failure and chronic kidney disease, stage III, Baseline creatinine around 1.8, creatinine of 2.2 on presentation, Monitor Deep venous thrombosis prophylaxis, SCDs. Disposition: Monitor in tele floor.. Code Status-DNR Total time spent on discharge = 40 minutes This includes examination of the patient, discharge planning, medication reconciliation, and communication with other providers. Discharge Instructions Date of Service Apr 14, 2017. Admission Reason for Admission: Profound Anemia Discharge Discharge Diagnosis / Problem: C Diff Colitis,Radiation Proctitis Discharge Goals Goal(s): Prevent Disease Progression Activity Recommendations Activity Limitations: resume your previous activity . Instructions / Follow-Up Instructions / Follow-Up Dr Terrell ( Dr Cardenas is away) on 04/20/17 at 10:45 AM . Current Hospital Diet Patient's current hospital diet: Diabetes Type 2 Diet Discharge Diet Recommended Diet: Diabetes Type 2 Diet Procedures Procedures Performed: colon with biopsies polyp and hemastasis Pending Studies Studies pending at discharge: no Medical Emergencies . Who to Call and When: Medical Emergencies: If at any time you feel your situation is an emergency, please call 911 immediately. . Non-Emergent Contact Non-Emergency issues call your: Primary Care Provider . Past History Medical & Surgical History: (1) C. difficile colitis (2) Radiation proctitis (3) Profound anemia (4) Anxiety and depression . "Provider Documentation" section prepared by Lisa Fernandez. . VTE Core Measure Inpt VTE Proph given/why not?: SCD's <Electronically signed by Lisa Fernandez M.D.> Signed: 04/14/17 1231 Additional Copies To Jerry Cardenas M.D.
[2017-04-14] MEDS ORDERED: FERROUS SULFATE 325 MG TAB PO SCH (16:45)
[2017-07-09] MEDS ORDERED: ASPI81TA28 PO (14:59)
[2017-07-09] MEDS ORDERED: VANC5CAP PO (14:59)
== END 2017-04-14 14:07 | disposition home or self-care (01) | DRG 393 ==
LOC: C.EDB 16:42 → UNDOADMIN 19:07 → C.MSICU 19:07 → ENRESERV 19:45 → CANBEDREQ 04-11 13:48 → C.2E 04-11 17:08 → C.MSICU 04-11 17:08
PROVIDERS: ADMIT Internal Medicine; ATTEND Internal Medicine
PROC: 0DBP8ZX Excision of Rectum, Via Natural or Artificial Opening Endoscopic, Diagnostic (ICD-10-PCS; principal; 2017-04-13 11:16)
PROC: 0DBK8ZX Excision of Ascending Colon, Via Natural or Artificial Opening Endoscopic, Diagnostic (ICD-10-PCS; principal; 2017-04-13 11:16)
PROC: 0W3P8ZZ Control Bleeding in Gastrointestinal Tract, Via Natural or Artificial Opening Endoscopic (ICD-10-PCS; principal; 2017-04-13 11:16)
DX: K62.7 Radiation proctitis (principal); K55.21 Angiodysplasia of colon with hemorrhage; D62 Acute posthemorrhagic anemia; K92.1 Melena; N17.9 Acute kidney failure, unspecified; A04.7 Enterocolitis due to Clostridium difficile; F32.9 Major depressive disorder, single episode, unspecified; F41.9 Anxiety disorder, unspecified; D12.6 Benign neoplasm of colon, unspecified; Z83.3 Family history of diabetes mellitus; N18.3 Chronic kidney disease, stage 3 (moderate); E11.21 Type 2 diabetes mellitus with diabetic nephropathy; C61 Malignant neoplasm of prostate; Z92.3 Personal history of irradiation; D64.9 Anemia, unspecified; Z79.4 Long term (current) use of insulin; W90.8XXA Exposure to other nonionizing radiation, initial encounter; Y84.2 Radiological procedure and radiotherapy as the cause of abnormal reaction of the patient, or of later complication, without mention of misadventure at the time of the procedure; Y92.009 Unspecified place in unspecified non-institutional (private) residence as the place of occurrence of the external cause; E11.319 Type 2 diabetes mellitus with unspecified diabetic retinopathy without macular edema; K57.30 Diverticulosis of large intestine without perforation or abscess without bleeding

== ENCOUNTER 2017-07-02 15:59 | Inpatient (IN) | payer OTHER ==
[2017-07-02] VITALS (8 sets, daily range): BP systolic 121–179; BP diastolic 64–107; PULSE 63–82; TEMP 36.4–37; O2SAT 100; Ht 180.3 cm; Wt 66.2 kg
[~2017-07-02] VITALS: Ht 180.3 cm; Wt 66.2 kg
[~2017-07-02 15:59] MED LIST changes: +FRRS300 PO; +LCTX PO; +LISI-729 PO; -TAMS0.4C38 PO; -VITA400C15 PO; +VNCS125 PO
[2017-07-02] MEDS ORDERED: SODIUM CHLORIDE 0.9% 500ML 500 ML IV STA (16:36)
[2017-07-02 16:44] LABS: PARTIAL THROMBOPLASTIN RATIO 0.9; PROTHROMBIN TIME (PATIENT) 10.8 SECONDS (9.0-12.0)
[2017-07-02 16:51] LABS: BUN/CREATININE RATIO 22.2 (10-20); CALCIUM 8.9 mg/dl (8.5-10.1); CREATININE 2.1 mg/dl (0.60-1.40); POTASSIUM 4.8 mmol/L (3.5-5.1)
--- NOTE | 2017-07-02 16:51 | EMERGENCY ROOM VISIT NOTE ---
History First contact with patient: 16:05 (Antonieta Ramos M.D.) First contact with patient: 16:05 (Stan Palomo MD) Chief Complaint: GI ASSESSMENT Stated Complaint: LOW BLOOD COUNT, GI BLEED Nursing Triage Summary: Pt presents stating he had blood work done today and has low blood counts. Pt reports feeling lightheaded, weak and tired. States he has blood in stool "that hasn't really ever stopped since March." Denies pain or n/v. (Antonieta Ramos M.D.) History of Present Illness The patient is a 76 year old male who presents to the Emergency Room per PCP recommendation for Lightheadedness, acute on chronic MA bleeding, chronic diarrhea and Hgb of 6.4. 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 Patient is not currently bleeding but was yesterday. Patient had recent ED visit for similar incident in April 2017 for acute blood loss anemia with Hgb of 3.9 and received 6 units of blood at that time. Dr. Gutierrez performed colonoscopy at that time and performed some cauterization. Hgb 1 week after discharge was 10. Patient states he has not had Hgb checked since April. Patient has a history of radiation proctitis, and hasn't had solid stool since stopping radiation in 2014. Patient is due for colonoscopy in July with Dr. Gutierrez. (Antonieta Ramos M.D.) Review of Systems See HPI for pertinent positives and negatives. A total of ten systems were reviewed and were otherwise negative. (Antonieta Ramos M.D.) Past Medical/Surgical History Medical Problems: (1) Anxiety and depression (2) C. difficile colitis (3) Diabetes (4) Kidney disease (5) Overdose of anticonvulsant (6) Prostate cancer (7) Radiation proctitis (8) Symptomatic anemia (Stan Palomo MD) Family History Diabetes mellitus FH: cancer (Antonieta Ramos M.D.) Diabetes mellitus FH: cancer (Stan Palomo MD) Social History Smoking Status: Never Smoker Alcohol Use: none Drug Use: none Marital Status: Housing Status: lives with significant other Occupation Status: retired (Antonieta Ramos M.D.) Current/Historical Medications Scheduled Aspirin (Aspirin 81), 1 TAB PO DAILY Insulin Glargine (Lantus), 20 UNITS SC HS Multiple Vitamin (Multi Vitamin Daily), 1 TAB PO DAILY Simvastatin (Zocor), 1 TAB PO DAILY Miscellaneous Medications Lisinopril (Zestril) Physical Exam Vital Signs Date Time Temp Pulse Resp B/P (MAP) Pulse Ox O2 Delivery O2 Flow Rate FiO2 07/02/17 18:08 36.5 72 16 130/64 07/02/17 17:49 78 18 107/62 100 Room Air 07/02/17 16:15 86 07/02/17 16:01 36.9 94 16 143/77 93 Room Air (Stan Palomo MD) Physical Exam GENERAL: Awake, alert, not ill appearing, no distress HEAD: Normocephalic, atraumatic. No edema. EYES: Conjunctival pallor. Sclera non-icteric. RESPIRATORY: CTA bilaterally. No wheezes rales or rhonchi. CARDIAC: Borderline tachycardic rate, normal rhythm. ABDOMEN: Soft, non distended. [no] tenderness to palpation. No rebound or guarding. MUSCULOSKELETAL: Atraumatic. No edema. NEURO: Normal sensorium. SKIN: No rash or jaundice noted (Antonieta Ramos M.D.) Medical Decision & Procedures ER Provider Diagnostic Interpretation: CHEST ONE VIEW PORTABLE HISTORY: 76 years-old Male acute chest pain with question perforation. COMPARISON: None available TECHNIQUE: Portable upright AP view of the chest FINDINGS: Calcified granuloma of the right upper lobe is again seen. Calcified right mediastinal or hilar lymph nodes are again noted. Cardiac silhouette is within normal limits. There is no pneumothorax, pleural effusion, focal airspace consolidation or overt pulmonary edema. Bones are grossly intact. No pneumoperitoneum of the upper abdomen is identified. IMPRESSION: Prior granulomatous disease without acute cardiopulmonary process. The above report was generated using voice recognition software. It may contain grammatical, syntax or spelling errors. Electronically signed by: Emre Burnette M.D. 07/02/2017 5:03 PM Dictated Date/Time: 07/02/2017 5:02 PM (Stan Palomo MD) Laboratory Results 07/02/17 16:20 Red Blood Count 2.13, Mean Corpuscular Volume 90.6, Mean Corpuscular Hemoglobin 29.6, Mean Corpuscular Hemoglobin Concent 32.6, Mean Platelet Volume 8.5, Neutrophils (%) (Auto) 60.3, Lymphocytes (%) (Auto) 23.3, Monocytes (%) (Auto) 12.4, Eosinophils (%) (Auto) 3.5, Basophils (%) (Auto) 0.5, Neutrophils # (Auto ) 2.44, Lymphocytes # (Auto) 0.94, Monocytes # (Auto) 0.50, Eosinophils # (Auto ) 0.14, Basophils # (Auto) 0.02 07/02/17 16:20 Test 07/02/17 16:20 White Blood Count 4.04 K/uL (4.8-10.8) Red Blood Count 2.13 M/uL (4.7-6.1) Hemoglobin 6.3 g/dL (14.0-18.0) Hematocrit 19.3 % (42-52) Mean Corpuscular Volume 90.6 fL (80-100) Mean Corpuscular Hemoglobin 29.6 pg (25-34) Mean Corpuscular Hemoglobin Concent 32.6 g/dl (32-36) Platelet Count 327 K/uL (130-400) Mean Platelet Volume 8.5 fL (7.4-10.4) Neutrophils (%) (Auto) 60.3 % Lymphocytes (%) (Auto) 23.3 % Monocytes (%) (Auto) 12.4 % Eosinophils (%) (Auto) 3.5 % Basophils (%) (Auto) 0.5 % Neutrophils # (Auto) 2.44 K/uL (1.4-6.5) Lymphocytes # (Auto) 0.94 K/uL (1.2-3.4) Monocytes # (Auto) 0.50 K/uL (0.11-0.59) Eosinophils # (Auto) 0.14 K/uL (0-0.5) Basophils # (Auto) 0.02 K/uL (0-0.2) RDW Standard Deviation 48.3 fL (36.4-46.3) RDW Coefficient of Variation 14.5 % (11.5-14.5) Immature Granulocyte % (Auto) 0.0 % Immature Granulocyte # (Auto) 0.00 K/uL (0.00-0.02) Red Blood Cell Morphology Unremarkable Prothrombin Time 10.8 SECONDS (9.0-12.0) Prothromb Time International Ratio 1.0 (0.9-1.1) Activated Partial Thromboplast Time 23.0 SECONDS (21.0-31.0) Partial Thromboplastin Ratio 0.9 Anion Gap 4.0 mmol/L (3-11) Est Creatinine Clear Calc Drug Dose 30.2 ml/min Estimated GFR () 34.9 Estimated GFR (Non- 30.1 BUN/Creatinine Ratio 22.2 (10-20) Calcium Level 8.9 mg/dl (8.5-10.1) Total Bilirubin 0.2 mg/dl (0.2-1) Aspartate Amino Transf (AST/SGOT) 18 U/L (15-37) Alanine Aminotransferase (ALT/SGPT) 19 U/L (12-78) Alkaline Phosphatase 52 U/L (45-117) Total Protein 6.7 gm/dl (6.4-8.2) Albumin 3.5 gm/dl (3.4-5.0) Globulin 3.2 gm/dl (2.5-4.0) Albumin/Globulin Ratio 1.1 (0.9-2) (Stan Palomo MD) Medications Administered Medications (Trade) Dose Ordered Sig/Martha Route Start Time Stop Time Status Last Admin Dose Admin Sodium Chloride 500 ml @ 999 mls/hr Q31M STAT IV 07/02/17 16:36 07/02/17 17:06 DC 07/02/17 16:40 999 MLS/HR (Stan Palomo MD) ECG Indication: other (anemia) Rhythm: normal sinus Findings: no acute ischemic change Comparison ECG Date: 10 April 2017, Normal ECG (Antonieta Ramos M.D.) ED Course 1610: full history and physical exam performed by myself and Dr. Mitchell 1630: discussed case wtih , who performed his own physical and history 1729: return call by CURTIS Terrazas, G, who will come evaluate patient for admission. (Antonieta Ramos M.D.) Medical Decision Prior records/ancillary studies reviewed. Triage Nursing notes reviewed. Additional history obtained from the patient. The patient's history was concerning for MA bleeding and anemia. Patient admitted to hospital in April 2017 for same complaint with Hgb of 3.9. Differential diagnosis: Etiologies such as diverticulosis, AVM, coagulopathy, colitis, inflammatory bowel disease, malignancy, fissure, hemorrhoids, as well as others were entertained. Physical exam: As above. The patients vital signs were normal; HR of 94 on admission ER treatment provided: 1 unit of PRBCs transfused; additional unit ordered. 500 mL NSS administered for tachycardia Diagnostics interpreted by me: ECG: NSR with slight transition of R waves, likely due to lead placement The labs revealed Hgb of 6.3 and Hct of 19.3 Consultation: A consultation was placed with the [facility] hospitalist. The case was discussed and diagnostics were reviewed. The patient was evaluated in the ER for further treatment. This appears to be consistent with anemia and rectal bleeding. By the evaluation outlined above emergent etiologies such as esophageal perforation, peptic ulcer disease, variceal bleed, coagulopathy, gastritis, epistaxis, malignancy, inflammatory bowel disease, as well as others were deemed relatively unlikely. The patient was informed about the findings as listed above. All questions were answered and patient is pleased with the treatment. (Antonieta Ramos M.D.) Medication Reconcilliation Current Medication List: was personally reviewed by me (Antonieta Ramos M.D.) Consults Time Called: 1724 Consulting Physician: VINCENT Terrazas hospitalist Returned Call: [phone] (Antonieta Ramos M.D.) Impression Primary Impression: Anemia Additional Impression: Rectal bleed Departure Information Dispostion Being Evaluated By Hospitalist Condition GOOD Referrals Jerry Cardenas M.D. (PCP) Patient Instructions My [facility] Resident Tracking Resident Involvement: Resident Care Provided Care Provided: Adult ED (Antonieta Ramos M.D.) Problem Qualifiers Primary Impression: Anemia Anemia type: unspecified type Qualified Codes: D64.9 - Anemia, unspecified
[2017-07-02 16:52] LABS: HEMATOCRIT 19.3 % (42-52); MEAN CELL VOLUME 90.6 fL (80-100); MEAN CORPUSCULAR HEMOGLOBIN 29.6 pg (25-34); MEAN CORPUSCULAR HGB CONC 32.6 g/dl (32-36); MEAN PLATELET VOLUME 8.5 fL (7.4-10.4); PLATELET COUNT 327 K/uL (130-400); RED BLOOD COUNT 2.13 M/uL (4.7-6.1); WHITE BLOOD COUNT 4.04 K/uL (4.8-10.8)
[2017-07-02 16:54] LABS: ALB/GLOB RATIO 1.1 (0.9-2); BASO % 0.5 %; BASO ABS # 0.02 K/uL (0-0.2); COMPLETE YES; EOS % 3.5 %; LYMPH % 23.3 %; LYMPH ABS # 0.94 K/uL (1.2-3.4); MONO % 12.4 %; NEUT % 60.3 %
--- NOTE | 2017-07-02 17:05 | DIAGNOSTIC IMAGING REPORT ---
CHEST ONE VIEW PORTABLE HISTORY: 76 years-old Male acute chest pain with question perforation. COMPARISON: None available TECHNIQUE: Portable upright AP view of the chest FINDINGS: Calcified granuloma of the right upper lobe is again seen. Calcified right mediastinal or hilar lymph nodes are again noted. Cardiac silhouette is within normal limits. There is no pneumothorax, pleural effusion, focal airspace consolidation or overt pulmonary edema. Bones are grossly intact. No pneumoperitoneum of the upper abdomen is identified. IMPRESSION: Prior granulomatous disease without acute cardiopulmonary process. The above report was generated using voice recognition software. It may contain grammatical, syntax or spelling errors. Electronically signed by: Emre Burnette M.D. 07/02/2017 5:03 PM Dictated Date/Time: 07/02/2017 5:02 PM
[2017-07-02] MEDS ORDERED: GLUCOSE 40% GEL 15 GM TUBE PO PRN (19:00)
[2017-07-02] MEDS ORDERED: MoRPHine SULFATE 2 MG/ML CARP IV PRN (19:00)
[2017-07-02] MEDS ORDERED: GLUCAGON FOR INJ 1 MG VIAL SQ PRN (19:00)
[2017-07-02] MEDS ORDERED: ACETAMINOPHEN 325 MG TAB PO PRN (19:00)
[2017-07-02] MEDS ORDERED: ONDANSETRON INJ 2 MG/ML 2 ML VIAL IV PRN (19:00)
[2017-07-02] MEDS ORDERED: DEXTROSE 50% 50 ML SYR IV PRN (19:00)
[2017-07-02] MEDS ORDERED: GLUCOSE 10 TABS/TUBE PO PRN (19:00)
[2017-07-02] MEDS ORDERED: LISI-789 PO (19:02)
--- NOTE | 2017-07-02 19:39 | History and Physical ---
History & Physical Date & Time of Service: Jul 02, 2017 at 19:05 Chief Complaint: Low Blood Count, Gi Bleed Primary Care Physician: Jerry Cardenas M.D. History of Present Illness Source: patient, spouse, clinic records, hospital records 76 yo M with h/o prostate cancer who underwent 44 cycles of XRT with last dose Dec 2015. He was subsequently diagnosed with radiation proctitis April 2017 when he arrived with profound anemia to the ER. During this last admission to the hospital he was treated for c-diff diarrhea (14 days vanc given total), transfused 6 units of blood (admission Hb was 3.9) and underwent a colonoscopy by Dr. Gutierrez revealing a polyp and finding a normal terminal ileum, a 6mm sessile polyp in the ascending colon, many diverticula, and findings consistent with radiation colitis. He underwent coagulation for hemostasis using argon plasma. Since leaving the hospital he reports having persistent diarrhea and bleeding roughly 3-4 times per week. Only in the last week did he notice the severity of bleeding increase. He also began having lightheadedness and significant fatigue which prompted a repeat H/H outpatient lab. On April 20 ( post-dc) his H/H was 10.1/32.2. Repeat check today revealed 6.5/20.6. He is currently receiving blood in the ER. He denies abdominal pain, chest pain or shortness of breath. He denies any nausea, vomiting, or intolerance of food. No headache, fevers, chills or bruising. Past Medical/Surgical History Medical Problems: (1) Anemia Status: Chronic (2) CKD (chronic kidney disease), stage III Permanent Comment: baseline creat 1.6-1.8 Status: Chronic (3) Diabetes Status: Chronic (4) H/O Clostridium difficile infection Status: Chronic (5) Prostate cancer Permanent Comment: DIAGNOSIS: Prostate, adenocarcinoma, bin 4 + 5, PSA 97.57 , [id number], group IV Initiation of hormonal suppression 09/16/2015 Status post completion of radiation therapy utilizing IMRT/IGRT completed 2015 received 7920 cGy Status: Chronic (6) Radiation proctitis Status: Chronic (7) Symptomatic anemia Status: Resolved Family History Diabetes mellitus FH: lung cancer FATHER Social History Smoking Status: Never Smoker Smokeless Tobacco Use: No Alcohol Use: none Drug Use: none Marital Status: Housing status: lives with significant other Occupational Status: retired Immunizations History of Influenza Vaccine: Yes Influenza Vaccine Date: Sep 20, 2010 History of Tetanus Vaccine?: Yes Tetanus Immunization Date: Jul 28, 2016 History of Pneumococcal: Yes Pneumococcal Date: Jul 11, 2015 History of Hepatitis B Vaccine: No Multi-Drug Resistant Organisms History of MDRO: No Allergies Coded Allergies: No Known Allergies (Unverified , 07/02/17) Home Medications Scheduled Aspirin (Aspirin 81), 1 TAB PO DAILY Insulin Glargine (Lantus), 20 UNITS SC HS Multiple Vitamin (Multi Vitamin Daily), 1 TAB PO DAILY Simvastatin (Zocor), 1 TAB PO DAILY Miscellaneous Medications Lisinopril (Zestril) Review of Systems At least ten systems were reviewed and negative except as indicated in HPI. Physical Exam Vital Signs Date Time Temp Pulse Resp B/P (MAP) Pulse Ox O2 Delivery O2 Flow Rate FiO2 07/02/17 18:46 80 18 131/73 100 07/02/17 18:41 36.8 78 18 125/78 100 07/02/17 18:25 37.0 76 18 127/65 100 07/02/17 18:08 36.5 72 16 130/64 07/02/17 17:49 78 18 107/62 100 Room Air 07/02/17 16:15 86 07/02/17 16:01 36.9 94 16 143/77 93 Room Air GEN: WNWD, in no acute distress, alert and appropriate HEENT: NC/AT, normal sclerae, MMM, trachea midline CARDIO: reg rate, S1/2 heard without m/g/r LUNGS: CTA bilaterally, no crackles, rales or wheezes, good diaphragmatic excursion ABD: soft, non-tender, non-distended, no rebound or guarding, +BS EXTREMITY: RP and DP palpable 2+ bilat, no LE swelling or edema, extremities are warm and well-perfused NEURO: CN 2-12 grossly intact, sensation intact throughout, no gross focal deficits. MUSC: 5/5 strength throughout, no focal deficits SKIN: warm and dry Diagnostics Laboratory Results 07/02/17 16:20 Red Blood Count 2.13, Mean Corpuscular Volume 90.6, Mean Corpuscular Hemoglobin 29.6, Mean Corpuscular Hemoglobin Concent 32.6, Mean Platelet Volume 8.5, Neutrophils (%) (Auto) 60.3, Lymphocytes (%) (Auto) 23.3, Monocytes (%) (Auto) 12.4, Eosinophils (%) (Auto) 3.5, Basophils (%) (Auto) 0.5, Neutrophils # (Auto ) 2.44, Lymphocytes # (Auto) 0.94, Monocytes # (Auto) 0.50, Eosinophils # (Auto ) 0.14, Basophils # (Auto) 0.02 07/02/17 16:20 Test 07/02/17 16:20 White Blood Count 4.04 K/uL (4.8-10.8) Red Blood Count 2.13 M/uL (4.7-6.1) Hemoglobin 6.3 g/dL (14.0-18.0) Hematocrit 19.3 % (42-52) Mean Corpuscular Volume 90.6 fL (80-100) Mean Corpuscular Hemoglobin 29.6 pg (25-34) Mean Corpuscular Hemoglobin Concent 32.6 g/dl (32-36) Platelet Count 327 K/uL (130-400) Mean Platelet Volume 8.5 fL (7.4-10.4) Neutrophils (%) (Auto) 60.3 % Lymphocytes (%) (Auto) 23.3 % Monocytes (%) (Auto) 12.4 % Eosinophils (%) (Auto) 3.5 % Basophils (%) (Auto) 0.5 % Neutrophils # (Auto) 2.44 K/uL (1.4-6.5) Lymphocytes # (Auto) 0.94 K/uL (1.2-3.4) Monocytes # (Auto) 0.50 K/uL (0.11-0.59) Eosinophils # (Auto) 0.14 K/uL (0-0.5) Basophils # (Auto) 0.02 K/uL (0-0.2) RDW Standard Deviation 48.3 fL (36.4-46.3) RDW Coefficient of Variation 14.5 % (11.5-14.5) Immature Granulocyte % (Auto) 0.0 % Immature Granulocyte # (Auto) 0.00 K/uL (0.00-0.02) Red Blood Cell Morphology Unremarkable Prothrombin Time 10.8 SECONDS (9.0-12.0) Prothromb Time International Ratio 1.0 (0.9-1.1) Activated Partial Thromboplast Time 23.0 SECONDS (21.0-31.0) Partial Thromboplastin Ratio 0.9 Anion Gap 4.0 mmol/L (3-11) Est Creatinine Clear Calc Drug Dose 30.2 ml/min Estimated GFR () 34.9 Estimated GFR (Non- 30.1 BUN/Creatinine Ratio 22.2 (10-20) Calcium Level 8.9 mg/dl (8.5-10.1) Total Bilirubin 0.2 mg/dl (0.2-1) Aspartate Amino Transf (AST/SGOT) 18 U/L (15-37) Alanine Aminotransferase (ALT/SGPT) 19 U/L (12-78) Alkaline Phosphatase 52 U/L (45-117) Total Protein 6.7 gm/dl (6.4-8.2) Albumin 3.5 gm/dl (3.4-5.0) Globulin 3.2 gm/dl (2.5-4.0) Albumin/Globulin Ratio 1.1 (0.9-2) Results Past 24 Hours Test 07/02/17 16:20 Range/Units White Blood Count 4.04 4.8-10.8 K/uL Red Blood Count 2.13 4.7-6.1 M/uL Hemoglobin 6.3 14.0-18.0 g/dL Hematocrit 19.3 42-52 % Mean Corpuscular Volume 90.6 80-100 fL Mean Corpuscular Hemoglobin 29.6 25-34 pg Mean Corpuscular Hemoglobin Concent 32.6 32-36 g/dl Platelet Count 327 130-400 K/uL Mean Platelet Volume 8.5 7.4-10.4 fL Neutrophils (%) (Auto) 60.3 % Lymphocytes (%) (Auto) 23.3 % Monocytes (%) (Auto) 12.4 % Eosinophils (%) (Auto) 3.5 % Basophils (%) (Auto) 0.5 % Neutrophils # (Auto) 2.44 1.4-6.5 K/uL Lymphocytes # (Auto) 0.94 1.2-3.4 K/uL Monocytes # (Auto) 0.50 0.11-0.59 K/uL Eosinophils # (Auto) 0.14 0-0.5 K/uL Basophils # (Auto) 0.02 0-0.2 K/uL RDW Standard Deviation 48.3 36.4-46.3 fL RDW Coefficient of Variation 14.5 11.5-14.5 % Immature Granulocyte % (Auto) 0.0 % Immature Granulocyte # (Auto) 0.00 0.00-0.02 K/uL Red Blood Cell Morphology Unremarkable Prothrombin Time 10.8 9.0-12.0 SECONDS Prothromb Time International Ratio 1.0 0.9-1.1 Activated Partial Thromboplast Time 23.0 21.0-31.0 SECONDS Partial Thromboplastin Ratio 0.9 Sodium Level 139 136-145 mmol/L Potassium Level 4.8 3.5-5.1 mmol/L Chloride Level 109 98-107 mmol/L Carbon Dioxide Level 26 21-32 mmol/L Anion Gap 4.0 3-11 mmol/L Blood Urea Nitrogen 47 7-18 mg/dl Creatinine 2.10 0.60-1.40 mg/dl Est Creatinine Clear Calc Drug Dose 30.2 ml/min Estimated GFR () 34.9 Estimated GFR (Non- 30.1 BUN/Creatinine Ratio 22.2 10-20 Random Glucose 172 70-99 mg/dl Calcium Level 8.9 8.5-10.1 mg/dl Total Bilirubin 0.2 0.2-1 mg/dl Aspartate Amino Transf (AST/SGOT) 18 15-37 U/L Alanine Aminotransferase (ALT/SGPT) 19 12-78 U/L Alkaline Phosphatase 52 45-117 U/L Total Protein 6.7 6.4-8.2 gm/dl Albumin 3.5 3.4-5.0 gm/dl Globulin 3.2 2.5-4.0 gm/dl Albumin/Globulin Ratio 1.1 0.9-2 Diagnostic Radiology CHEST ONE VIEW PORTABLE HISTORY: 76 years-old Male acute chest pain with question perforation. COMPARISON: None available TECHNIQUE: Portable upright AP view of the chest FINDINGS: Calcified granuloma of the right upper lobe is again seen. Calcified right mediastinal or hilar lymph nodes are again noted. Cardiac silhouette is within normal limits. There is no pneumothorax, pleural effusion, focal airspace consolidation or overt pulmonary edema. Bones are grossly intact. No pneumoperitoneum of the upper abdomen is identified. IMPRESSION: Prior granulomatous disease without acute cardiopulmonary process. CT OF THE ABDOMEN AND PELVIS WITHOUT CONTRAST CLINICAL HISTORY: Anemia. Hematochezia. Evaluate for colonic mass. Prostate cancer. COMPARISON STUDY: CT of the abdomen and pelvis September 03, 2015. TECHNIQUE: Axial images of the abdomen and pelvis were obtained without IV contrast. Images were reviewed in the axial, sagittal, and coronal planes. FINDINGS: Visualized portions of the lower chest demonstrate trace bilateral pleural effusions with associated subsegmental atelectasis. There is mild interlobular septal thickening. No pneumatosis, free air or portal venous gas is present. Evaluation of the abdomen and pelvis is suboptimal on this unenhanced exam. Unenhanced images of the liver, spleen, adrenal glands, right kidney and pancreas are unremarkable. A few left renal calculi measure up to 4 mm. There are no ureteral calculi and there is no hydronephrosis. No biliary or pancreatic ductal dilatation is present. No enlarged lymph nodes are identified on this unenhanced exam. There is made of mild wall thickening of the proximal to mid rectum with mild perirectal infiltration. There is no free air or abscess. There is sigmoid diverticulosis without evidence for acute diverticulitis. Sensitivity for detection of mucosal lesions is diminished on this unenhanced exam. There is no evidence for a bowel obstruction. There is a moderate amount of stool within the colon. The prostate is mildly enlarged. No suspicious osseous lesions are identified. There is decreased attenuation of the blood pool within the heart consistent with known anemia. IMPRESSION: 1. Mild wall thickening of the proximal to mid rectum with mild perirectal infiltration. This favors a nonspecific proctitis. A neoplastic process could appear similar and this could be correlated with colonoscopy. 2. No bowel obstruction. Moderate amount of stool within the colon. 3. Trace bilateral pleural effusions and mild pulmonary edema. 4. Suboptimal evaluation for mucosal lesions given CT technique and lack of IV contrast. 5. Left-sided nephrolithiasis. EKG EKG: SR 76. does not appear to be q waves in V1/2, no ST changes. Impression Assessment and Plan 76 yo M with h/o prostate cancer s/p XRT with subsequent radiation proctitis and a recent h/o c-diff with no improvement in diarrhea, who presents with symptomatic anemia. 1. Symptomatic anemia-likely 2/2 acute blood loss and anemia of chronic inflammation with ongoing proctitis. Two units being given, first unit infusing now and patient already feeling better. Orthostatics, hold on IVF until reassessing after giving blood, post-transfusion H/H, consult GI, hold ASA 81 which he has been taking at home. 2. Diarrhea in setting of recently treated c-diff infection with no initial resolution of the diarrhea after 14-days of oral vancomycin. Empiric contact precautions and repeat c-diff testing at this time 3. DMII-controlled, ISS with carb coverage and Lantus 4. CKD Stage III with baseline creat 1.6-1.8--may have slight MORRO present related to low EAV in setting of severe anemia. Repeat PRP in am after giving blood tonight. 5. h/o prostate cancer s/p XRT-completed 44 cycles XRT in Dec 2015 6. HTN-on low dose lisinopril, hold to avoid hypotension in setting of anemia 7. HLP-cont statin therapy DVT proh-SCDs Full Code-pt reports he wants initial resuscitation if needed but does not want prolonged life support if prognosis poor. Discussion took place with present. Dispo-to telemetry [facility] Level [facility] Care Telemetry Resuscitation Status FULL RESUSCITATION VTE Prophylaxis VTE Risk Assessment Done? Y/N: Yes Risk Level: Moderate Given or contraindicated: Contraindicated
--- NOTE | 2017-07-02 19:48 | EMERGENCY ROOM VISIT NOTE ---
ED Visit Note First contact with patient: 16:05 HPI: Red blood rectal bleeding in setting of s/p radiation for prostate cancer and subsequent proctitis. PE: AFVSS, fatigued appearing, NAD NC/AT, dry mm. RRR, no murmurs CTAB Abd soft NT/ND Ext: no edema, erythema Skin: pale, warm, dry. Neuro: grossly intact Plan: Hbg 6.3. Will transfuse. Rectal exam deferred in setting of radiation proctitis. Patient admitted to medicine for further management. I reviewed the patient's past medical history, medications, and visit nursing notes. I discussed the case with the resident, examined the patient, and agree with the findings and plan as documented in the residents note.
[2017-07-02] MEDS: INSULIN ASPART 100 UNITS/ML 3 ML PEN SC SCH (21:00)
[2017-07-02] MEDS: INSULIN GLARGINE SOLOSTAR 100 UNITS/ML 3 ML PEN SC SCH (22:08)
[2017-07-03 02:00] LABS: HEMATOCRIT 24.6 % (42-52)
[2017-07-03 03:33] VITALS: BP 151/71; PULSE 60; TEMP 36.4; O2SAT 99
[2017-07-03 05:56] LABS: HEMATOCRIT 24.7 % (42-52); MEAN CELL VOLUME 89.5 fL (80-100); MEAN CORPUSCULAR HEMOGLOBIN 30.1 pg (25-34); MEAN CORPUSCULAR HGB CONC 33.6 g/dl (32-36); MEAN PLATELET VOLUME 8.4 fL (7.4-10.4); PLATELET COUNT 278 K/uL (130-400); RED BLOOD COUNT 2.76 M/uL (4.7-6.1); WHITE BLOOD COUNT 3.99 K/uL (4.8-10.8)
[2017-07-03 06:31] LABS: BUN/CREATININE RATIO 21.2 (10-20); CALCIUM 8.2 mg/dl (8.5-10.1); CREATININE 1.7 mg/dl (0.60-1.40); POTASSIUM 4.7 mmol/L (3.5-5.1)
[2017-07-03] MEDS: INSULIN ASPART 100 UNITS/ML 3 ML PEN SC SCH ×4 (07:00→20:56)
[2017-07-03 07:34] VITALS: BP 113/50; PULSE 64; TEMP 36.8; O2SAT 99
[2017-07-03] MEDS: SIMVASTATIN 40 MG TAB PO SCH (08:54)
[2017-07-03] MEDS: INSULIN GLARGINE SOLOSTAR 100 UNITS/ML 3 ML PEN SC SCH ×2 (09:03→20:57)
--- NOTE | 2017-07-03 11:14 | Gastrointestinal Consultation ---
Gastrointestinal Consultation Date of Consultation: Jul 03, 2017 Attending Physician: Shan Kraft Consulting Physician: Rober Simms Reason for Consultation: Hx of XRT proctitis, blood loss anemia History of Present Illness Patient is a 76 year old male w PMHx of XRT for prostate cancer, ended in 12/2015 , CKD III, anemia who presented to ED w increased painless rectal bleeding. Pt presented w similar symptoms in April. Found to be anemic w Hgb around 3, received 6U PRBC, Hgb improved to 10. He was found to have Cdiff + and had 14days course of Vancomycin 125mg QID. He also underwent colonoscopy eval by Dr. Gutierrez, found to have some AVMs treated w APC, suspected for possible radiation proctitis, rectal bx unremarkable, and he had sessile serrated polyp in colon. Pt reports since last DC home, his rectal bleeding never went away, though within last few days noticed increased amt of bright red blood w some clots. He also noticed to have more fatigue. Denies any n/v, abd pain. His stools are varying in consistency, some days will have multiple loose stools, then no BM for a few days. Upon eval, he was noted to be anemic w Hgb 6, received 2U PRBC, improved to 8. He hasn't had any BM since admission per his report. Again no abd pain, n/v, tolerated CL diet this AM. No light headedness, dizziness, CP, SOB. Past Medical/Surgical History Medical Problems: (1) Anemia Status: Chronic (2) GI bleed Status: Acute (3) Radiation proctitis Status: Chronic (4) Rectal bleed Status: Acute Past Medical History: See above Family History Diabetes mellitus FH: lung cancer FATHER Social History Smoking Status: Never Smoker Alcohol Use: none Drug Use: none Marital Status: Housing Status: lives with significant other Occupation Status: retired Allergies Coded Allergies: No Known Allergies (Unverified , 07/02/17) Current Medications Home Meds and Scripts Medications Dose Route/Sig Max Daily Dose Days Date Category Zestril (Lisinopril) 2.5 Mg Tab 07/02/17 Reported Lantus (Insulin Glargine) 100 Unit/Ml Inj 20 Units SC HS 09/13/15 Reported Zocor (Simvastatin) 40 Mg Tab 1 Tab PO DAILY 90 09/13/15 Reported Aspirin 81 (Aspirin) 81 Mg Tab 1 Tab PO DAILY 09/13/15 Reported Multi Vitamin Daily (Multiple Vitamin) 1 Tab Tab 1 Tab PO DAILY 09/13/15 Reported Review of Systems Constitutional: No fever, No chills Respiratory: No cough, No shortness of breath Abdomen: + GI bleeding, No pain, No nausea, No vomiting Endo: + fatigue Physical Exam Date Time Temp Pulse Resp B/P (MAP) Pulse Ox O2 Delivery O2 Flow Rate FiO2 07/03/17 07:34 36.8 64 18 113/50 (71) 99 07/03/17 04:00 Room Air 07/03/17 03:33 36.4 60 16 151/71 (97) 99 Room Air 07/02/17 23:59 Room Air 07/02/17 23:52 36.4 63 20 136/71 (92) 100 Room Air 65 150/79 (102) 137/78 (97) 07/02/17 22:16 36.8 66 20 131/64 100 07/02/17 21:41 36.4 66 20 130/71 100 07/02/17 21:00 36.5 82 18 179/77 100 Room Air 07/02/17 20:30 69 18 130/68 100 Room Air 07/02/17 19:45 36.7 71 18 123/107 100 07/02/17 19:15 74 18 121/72 100 07/02/17 18:46 80 18 131/73 100 07/02/17 18:41 36.8 78 18 125/78 100 07/02/17 18:25 37.0 76 18 127/65 100 07/02/17 18:08 36.5 72 16 130/64 07/02/17 17:49 78 18 107/62 100 Room Air 07/02/17 16:15 86 07/02/17 16:01 36.9 94 16 143/77 93 Room Air General Appearance: WD/WN, no apparent distress Eyes: normal inspection, PERRL, EOMI Neck: supple, no JVD, trachea midline Respiratory/Chest: normal breath sounds, no respiratory distress, no accessory muscle use Cardiovascular: regular rate, rhythm, no gallop, no murmur Abdomen: normal bowel sounds, non tender, soft Extremities: normal inspection, no pedal edema, no calf tenderness Neurologic/Psych: alert, normal mood/affect, oriented x 3 Skin: normal color, no jaundice, no rash Laboratory Results Last 24 Hours Test 07/02/17 16:20 07/02/17 21:28 07/03/17 01:50 07/03/17 05:41 White Blood Count 4.04 K/uL 3.99 K/uL Red Blood Count 2.13 M/uL 2.76 M/uL Hemoglobin 6.3 g/dL 8.2 g/dL 8.3 g/dL Hematocrit 19.3 % 24.6 % 24.7 % Mean Corpuscular Volume 90.6 fL 89.5 fL Mean Corpuscular Hemoglobin 29.6 pg 30.1 pg Mean Corpuscular Hemoglobin Concent 32.6 g/dl 33.6 g/dl Platelet Count 327 K/uL 278 K/uL Mean Platelet Volume 8.5 fL 8.4 fL Neutrophils (%) (Auto) 60.3 % Lymphocytes (%) (Auto) 23.3 % Monocytes (%) (Auto) 12.4 % Eosinophils (%) (Auto) 3.5 % Basophils (%) (Auto) 0.5 % Neutrophils # (Auto) 2.44 K/uL Lymphocytes # (Auto) 0.94 K/uL Monocytes # (Auto) 0.50 K/uL Eosinophils # (Auto) 0.14 K/uL Basophils # (Auto) 0.02 K/uL RDW Standard Deviation 48.3 fL 48.2 fL RDW Coefficient of Variation 14.5 % 14.7 % Immature Granulocyte % (Auto) 0.0 % Immature Granulocyte # (Auto) 0.00 K/uL Red Blood Cell Morphology Unremarkable Prothrombin Time 10.8 SECONDS Prothromb Time International Ratio 1.0 Activated Partial Thromboplast Time 23.0 SECONDS Partial Thromboplastin Ratio 0.9 Sodium Level 139 mmol/L 141 mmol/L Potassium Level 4.8 mmol/L 4.7 mmol/L Chloride Level 109 mmol/L 112 mmol/L Carbon Dioxide Level 26 mmol/L 25 mmol/L Anion Gap 4.0 mmol/L 4.0 mmol/L Blood Urea Nitrogen 47 mg/dl 36 mg/dl Creatinine 2.10 mg/dl 1.70 mg/dl Est Creatinine Clear Calc Drug Dose 30.2 ml/min 37.9 ml/min Estimated GFR () 34.9 45.0 Estimated GFR (Non- 30.1 38.9 BUN/Creatinine Ratio 22.2 21.2 Random Glucose 172 mg/dl 86 mg/dl Calcium Level 8.9 mg/dl 8.2 mg/dl Total Bilirubin 0.2 mg/dl Aspartate Amino Transf (AST/SGOT) 18 U/L Alanine Aminotransferase (ALT/SGPT) 19 U/L Alkaline Phosphatase 52 U/L Total Protein 6.7 gm/dl Albumin 3.5 gm/dl Globulin 3.2 gm/dl Albumin/Globulin Ratio 1.1 Bedside Glucose 125 mg/dl Test 07/03/17 06:53 Bedside Glucose 85 mg/dl Impression Patient is a 76 year old male w hx of XRT for prostate ca, hx of possible radiation proctitis and AVM in colon found during his last colonoscopy treated w APC, hx of Cdiff; now presented w anemia, increased rectal bleeding w/o constant loose stools, abd. Hgb increased from 6 to 8 after 2U PRBC transfusion overnight. Plan - Repeat Cdiff and stool cx checks. - Monitor H/H and transfuse prn - Discussed w pt possible repeat colonoscopy to investigate areas of proctitis for repeat APC treatment if causing bleeding, and also add EGD procedure given findings of AVMs in colon previously in April. He said he'll prefer to be DC'd home over weekend if possible and agreeable to outpt EGD/Colonoscopy procedures next week. Meanwhile will add Cortenema BID for possible proctitis. - May advance diet as tolerated. I have seen, examined, and agree with the plan as outlined by CURTIS Leon -Minimal to no acute bleeding, chronic issue, unsure if AVM's vs procititis -Medical therapy for Proctitis, needs EGD/Colonoscopy
[2017-07-03 11:39] VITALS: BP_SYST 120; BP_SYST 124; BP_SYST 134; BP_DIAS 63; BP_DIAS 69; BP_DIAS 70; PULSE 70; PULSE 72; PULSE 82; TEMP 36.7; O2SAT 96
[2017-07-03 15:58] VITALS: BP_SYST 138; BP_SYST 141; BP_SYST 142; BP_DIAS 73; BP_DIAS 74; BP_DIAS 77; PULSE 63; TEMP 36.7; O2SAT 98
--- NOTE | 2017-07-03 17:53 | Progress Note ---
Internal Med Progress Note Date of Service: Jul 03, 2017. Provider Documentation: SUBJECTIVE: resting comfortably having diarrhea and blood in stools every few days since discharged was feeling weak and light heaed no nausea or abdominal pain afebrile hemodynamics stable OBJECTIVE: Vital Signs-as noted below Exam: General-alert and oriented. Not in distress ENT-normal hearing Neck-no neck masses Lungs-cta b/l no wheezing or crackles Heart-s1 and s2 heard regular rhythm, no murmurs Abdomen-soft bowel sounds present non tender no distension Extremities no edema no erythema Neuro-alert and oriented moves extremities Lab data as noted below. ASSESSMENT & PLAN: 76 yo M with h/o prostate cancer s/p XRT with subsequent radiation proctitis and a recent h/o c-diff with no improvement in diarrhea, who presents with symptomatic anemia. 1. Symptomatic anemia-likely 2/2 acute blood loss and anemia of chronic inflammation with ongoing proctitis. HOLDING ASPIRIN RECEIVED TWO UNITS PRBC HB 8.3 TODAY gi plans for Cortenema BID for now and egd/colonscopy as out patinet will f/u h and h 2. Diarrhea in setting of recently treated c-diff infection with no initial resolution of the diarrhea after 14-days of oral vancomycin. c diff posive started on po vancomycin- will do 6 week taper course. 3. DMII-controlled, ISS with carb coverage and Lantus. Will monitor. 4. MORRO on CKD Stage III with baseline creat 1.6-1.8-- presented with cr 2.1 cr 1.7 today. 5. h/o prostate cancer s/p XRT-completed 44 cycles XRT in Dec 2015 6. HTN-on low dose lisinopril, holding to avoid hypotension in setting of anemia. 7. HLPOn statin therapy DVT PROPHYLAXIS scds DISPOSITION to be determined Vital Signs: Date Time Temp Pulse Resp B/P (MAP) Pulse Ox O2 Delivery O2 Flow Rate FiO2 07/03/17 16:00 Room Air 07/03/17 15:58 36.7 63 18 141/73 (95) 98 Room Air 138/77 (97) 142/74 (96) 07/03/17 12:05 Room Air 07/03/17 11:39 36.7 72 18 120/63 (82) 96 70 124/70 (88) 82 134/69 (90) 07/03/17 08:00 Room Air 07/03/17 07:34 36.8 64 18 113/50 (71) 99 07/03/17 04:00 Room Air 07/03/17 03:33 36.4 60 16 151/71 (97) 99 Room Air 07/02/17 23:59 Room Air 07/02/17 23:52 36.4 63 20 136/71 (92) 100 Room Air 65 150/79 (102) 137/78 (97) 07/02/17 22:16 36.8 66 20 131/64 100 07/02/17 21:41 36.4 66 20 130/71 100 07/02/17 21:00 36.5 82 18 179/77 100 Room Air 07/02/17 20:30 69 18 130/68 100 Room Air 07/02/17 19:45 36.7 71 18 123/107 100 07/02/17 19:15 74 18 121/72 100 07/02/17 18:46 80 18 131/73 100 07/02/17 18:41 36.8 78 18 125/78 100 07/02/17 18:25 37.0 76 18 127/65 100 07/02/17 18:08 36.5 72 16 130/64 07/02/17 17:49 78 18 107/62 100 Room Air Lab Results: Results Past 24 Hours Test 07/02/17 21:28 07/03/17 01:50 07/03/17 05:41 07/03/17 06:53 Range/Units Bedside Glucose 125 85 70-99 mg/dl Hemoglobin 8.2 8.3 14.0-18.0 g/dL Hematocrit 24.6 24.7 42-52 % White Blood Count 3.99 4.8-10.8 K/uL Red Blood Count 2.76 4.7-6.1 M/uL Mean Corpuscular Volume 89.5 80-100 fL Mean Corpuscular Hemoglobin 30.1 25-34 pg Mean Corpuscular Hemoglobin Concent 33.6 32-36 g/dl RDW Standard Deviation 48.2 36.4-46.3 fL RDW Coefficient of Variation 14.7 11.5-14.5 % Platelet Count 278 130-400 K/uL Mean Platelet Volume 8.4 7.4-10.4 fL Sodium Level 141 136-145 mmol/L Potassium Level 4.7 3.5-5.1 mmol/L Chloride Level 112 98-107 mmol/L Carbon Dioxide Level 25 21-32 mmol/L Anion Gap 4.0 3-11 mmol/L Blood Urea Nitrogen 36 7-18 mg/dl Creatinine 1.70 0.60-1.40 mg/dl Est Creatinine Clear Calc Drug Dose 37.9 ml/min Estimated GFR () 45.0 Estimated GFR (Non- 38.9 BUN/Creatinine Ratio 21.2 10-20 Random Glucose 86 70-99 mg/dl Calcium Level 8.2 8.5-10.1 mg/dl Test 07/03/17 11:20 07/03/17 16:19 Range/Units Bedside Glucose 90 74 70-99 mg/dl Microbiology Results 07/03/17 Shiga Toxin Test, Received Pending 07/03/17 Stool Culture, Received Pending 07/03/17 C.difficile Toxin B Gene (PCR) - Final, Complete Positive for C. difficile toxin B gene
[2017-07-03 19:24] VITALS: BP 151/77; PULSE 67; TEMP 36.6; O2SAT 97
[2017-07-03] MEDS: VANCOMYCIN HCL 125 MG/2.5ML SOLN PO SCH (20:55)
[2017-07-03] MEDS: RASPBERRY SYRUP 5 ML UDP PO SCH (20:55)
[2017-07-03] MEDS ORDERED: HYDROCORTISONE ENEMA PR SCH (21:00)
[2017-07-03 23:14] VITALS: BP_SYST 130; BP_SYST 148; BP_SYST 160; BP_DIAS 75; BP_DIAS 78; BP_DIAS 83; PULSE 64; PULSE 66; PULSE 74; TEMP 36.9; O2SAT 98
[2017-07-04 03:29] VITALS: BP 139/69; PULSE 65; TEMP 36.5; O2SAT 99
[2017-07-04] MEDS: INSULIN ASPART 100 UNITS/ML 3 ML PEN SC SCH ×4 (07:00→21:35)
[2017-07-04 08:16] VITALS: BP 126/63; PULSE 76; TEMP 37; O2SAT 95
[2017-07-04] MEDS: RASPBERRY SYRUP 5 ML UDP PO SCH ×4 (08:44→21:35)
[2017-07-04] MEDS: SIMVASTATIN 40 MG TAB PO SCH ×2 (08:44→21:30)
[2017-07-04] MEDS: VANCOMYCIN HCL 125 MG/2.5ML SOLN PO SCH ×4 (08:44→21:35)
[2017-07-04] MEDS: INSULIN GLARGINE SOLOSTAR 100 UNITS/ML 3 ML PEN SC SCH ×2 (08:47→21:34)
[2017-07-04 10:16] LABS: BASO % 0.5 %; BASO ABS # 0.02 K/uL (0-0.2); COMPLETE YES; HEMATOCRIT 28.4 % (42-52); IG% 0.3 %; LYMPH % 19.8 %; LYMPH ABS # 0.79 K/uL (1.2-3.4); MEAN CELL VOLUME 91.3 fL (80-100); MEAN CORPUSCULAR HEMOGLOBIN 29.9 pg (25-34); MEAN CORPUSCULAR HGB CONC 32.7 g/dl (32-36); MEAN PLATELET VOLUME 8.3 fL (7.4-10.4); MONO % 11.8 %; NEUT % 63.6 %; PLATELET COUNT 299 K/uL (130-400); RED BLOOD COUNT 3.11 M/uL (4.7-6.1); WHITE BLOOD COUNT 3.99 K/uL (4.8-10.8)
[2017-07-04 10:34] LABS: BUN/CREATININE RATIO 15.8 (10-20); CALCIUM 8.8 mg/dl (8.5-10.1); CREATININE 1.7 mg/dl (0.60-1.40); MAGNESIUM 2.1 mg/dl (1.8-2.4); POTASSIUM 4.7 mmol/L (3.5-5.1)
[2017-07-04 11:14] VITALS: BP_SYST 112; BP_SYST 126; BP_SYST 137; BP_DIAS 71; BP_DIAS 74; BP_DIAS 79; PULSE 65; TEMP 37; O2SAT 98
[2017-07-04 16:12] VITALS: BP_SYST 117; BP_SYST 118; BP_SYST 129; BP_DIAS 70; BP_DIAS 74; BP_DIAS 75; PULSE 69; PULSE 79; PULSE 80; TEMP 36.4; O2SAT 99
--- NOTE | 2017-07-04 17:03 | Progress Note ---
Internal Med Progress Note Date of Service: Jul 04, 2017. Provider Documentation: SUBJECTIVE: resting comfortably last night had normal bowel movement but again today morning had bloody bowel movement no nausea or abdominal pain no sob OBJECTIVE: Vital Signs-as noted below Exam: General-alert and oriented. Not in distress ENT-normal hearing Neck-no neck masses Lungs-cta b/l no wheezing or crackles Heart-s1 and s2 heard regular rhythm, no murmurs Abdomen-soft bowel sounds present non tender no distension Extremities no edema no erythema Neuro-alert and oriented moves extremities Lab data as noted below. ASSESSMENT & PLAN: 76 yo M with h/o prostate cancer s/p XRT with subsequent radiation proctitis and a recent h/o c-diff with no improvement in diarrhea, who presents with symptomatic anemia. 1. Symptomatic anemia-likely 2/2 acute blood loss and anemia of chronic inflammation with ongoing proctitis. HOLDING ASPIRIN RECEIVED TWO UNITS PRBC HB 9.3 TODAY gi planned for Cortenema BID but was stopped as c diff was positive. plan egd/colonoscopy as out patient will f/u h and h 2. Diarrhea in setting of recently treated c-diff infection with no initial resolution of the diarrhea after 14-days of oral vancomycin. c diff posive started on po vancomycin- will do 6 week taper course.Will monitor 3. DMII-controlled, ISS with carb coverage and Lantus. Will monitor. 4. MORRO on CKD Stage III with baseline creat 1.6-1.8-- presented with cr 2.1 cr 1.7 today. 5. h/o prostate cancer s/p XRT-completed 44 cycles XRT in Dec 2015 6. HTN-on low dose lisinopril, holding to avoid hypotension in setting of anemia. 7. HLPOn statin therapy DVT PROPHYLAXIS scds DISPOSITION monitor in tele to be determined Vital Signs: Date Time Temp Pulse Resp B/P (MAP) Pulse Ox O2 Delivery O2 Flow Rate FiO2 07/04/17 16:12 36.4 69 22 129/75 (93) 99 Room Air 79 118/74 (89) 80 117/70 (86) 07/04/17 16:00 Room Air 07/04/17 12:00 Room Air 07/04/17 11:14 37.0 65 18 137/79 (98) 98 126/74 (91) 112/71 (85) 07/04/17 08:16 37.0 76 18 126/63 (84) 95 07/04/17 08:00 Room Air 07/04/17 04:00 Room Air 07/04/17 03:29 36.5 65 16 139/69 (92) 99 Room Air 07/03/17 23:59 Room Air 07/03/17 23:14 36.9 66 18 160/83 (108) 98 Room Air 64 148/75 (99) 74 130/78 (95) 07/03/17 20:00 Room Air 07/03/17 19:24 36.6 67 18 151/77 (101) 97 Room Air Lab Results: Results Past 24 Hours Test 07/03/17 19:56 07/04/17 06:33 07/04/17 06:48 07/04/17 07:06 Range/Units Bedside Glucose 114 65 65 72 70-99 mg/dl Test 07/04/17 10:05 07/04/17 10:54 07/04/17 16:30 Range/Units White Blood Count 3.99 4.8-10.8 K/uL Red Blood Count 3.11 4.7-6.1 M/uL Hemoglobin 9.3 14.0-18.0 g/dL Hematocrit 28.4 42-52 % Mean Corpuscular Volume 91.3 80-100 fL Mean Corpuscular Hemoglobin 29.9 25-34 pg Mean Corpuscular Hemoglobin Concent 32.7 32-36 g/dl Platelet Count 299 130-400 K/uL Mean Platelet Volume 8.3 7.4-10.4 fL Neutrophils (%) (Auto) 63.6 % Lymphocytes (%) (Auto) 19.8 % Monocytes (%) (Auto) 11.8 % Eosinophils (%) (Auto) 4.0 % Basophils (%) (Auto) 0.5 % Neutrophils # (Auto) 2.54 1.4-6.5 K/uL Lymphocytes # (Auto) 0.79 1.2-3.4 K/uL Monocytes # (Auto) 0.47 0.11-0.59 K/uL Eosinophils # (Auto) 0.16 0-0.5 K/uL Basophils # (Auto) 0.02 0-0.2 K/uL RDW Standard Deviation 48.6 36.4-46.3 fL RDW Coefficient of Variation 14.7 11.5-14.5 % Immature Granulocyte % (Auto) 0.3 % Immature Granulocyte # (Auto) 0.01 0.00-0.02 K/uL Sodium Level 139 136-145 mmol/L Potassium Level 4.7 3.5-5.1 mmol/L Chloride Level 107 98-107 mmol/L Carbon Dioxide Level 26 21-32 mmol/L Anion Gap 6.0 3-11 mmol/L Blood Urea Nitrogen 27 7-18 mg/dl Creatinine 1.70 0.60-1.40 mg/dl Est Creatinine Clear Calc Drug Dose 35.7 ml/min Estimated GFR () 45.0 Estimated GFR (Non- 38.9 BUN/Creatinine Ratio 15.8 10-20 Random Glucose 138 70-99 mg/dl Calcium Level 8.8 8.5-10.1 mg/dl Magnesium Level 2.1 1.8-2.4 mg/dl Bedside Glucose 126 98 70-99 mg/dl
[2017-07-04 19:30] VITALS: BP 124/79; PULSE 70; TEMP 37; O2SAT 98
[2017-07-05] VITALS (7 sets, daily range): BP systolic 96–153; BP diastolic 62–85; PULSE 65–107; TEMP 36.5–36.8; O2SAT 97–100
[2017-07-05 06:19] LABS: BASO % 0.7 %; BASO ABS # 0.03 K/uL (0-0.2); COMPLETE YES; EOS % 5.8 %; HEMATOCRIT 28.2 % (42-52); LYMPH % 26.9 %; LYMPH ABS # 1.12 K/uL (1.2-3.4); MEAN CELL VOLUME 91.9 fL (80-100); MEAN CORPUSCULAR HGB CONC 32.6 g/dl (32-36); MEAN PLATELET VOLUME 8.7 fL (7.4-10.4); MONO % 13.2 %; NEUT % 53.4 %; PLATELET COUNT 307 K/uL (130-400); RED BLOOD COUNT 3.07 M/uL (4.7-6.1); WHITE BLOOD COUNT 4.17 K/uL (4.8-10.8)
[2017-07-05] MEDS: INSULIN ASPART 100 UNITS/ML 3 ML PEN SC SCH ×2 (07:00→11:55)
[2017-07-05 07:12] LABS: BUN/CREATININE RATIO 14.2 (10-20); CALCIUM 8.5 mg/dl (8.5-10.1); CREATININE 1.6 mg/dl (0.60-1.40); MAGNESIUM 2.1 mg/dl (1.8-2.4); POTASSIUM 4.5 mmol/L (3.5-5.1)
[2017-07-05] MEDS: RASPBERRY SYRUP 5 ML UDP PO SCH ×2 (09:08→14:01)
[2017-07-05] MEDS: VANCOMYCIN HCL 125 MG/2.5ML SOLN PO SCH ×2 (09:08→14:00)
[2017-07-05] MEDS: INSULIN GLARGINE SOLOSTAR 100 UNITS/ML 3 ML PEN SC SCH (09:11)
[2017-07-05] MEDS ORDERED: VANC5CAP PO (13:27)
--- NOTE | 2017-07-05 13:31 | Discharge Instructions ---
Discharge Instructions Date of Service Jul 05, 2017. Admission Reason for Admission: Anemia Discharge Discharge Diagnosis / Problem: anemia. gi bleed. c diff Discharge Goals Goal(s): Decrease discomfort, Improve function Activity Recommendations Activity Limitations: resume your previous activity . Instructions / Follow-Up Instructions / Follow-Up FOLLOWUP WITH FAMILY DOCTOR ON AT 2PM. FOLLOWUP WITH GI FOR EGD AND COLONOSCOPY. TO HOLD ASPIRIN UNTIL OK TO RESTART BY FAMILY DOCTOR AND GI LAB: CBC IN 4-5 DAYS AND FOLLOW RESULTS WITH FAMILY DOCTOR. Current Hospital Diet Patient's current hospital diet: Diabetes Type 2 Diet Discharge Diet Recommended Diet: Diabetes Type 2 Diet Pending Studies Studies pending at discharge: no Medical Emergencies . Who to Call and When: Medical Emergencies: If at any time you feel your situation is an emergency, please call 911 immediately. . Non-Emergent Contact Non-Emergency issues call your: Primary Care Provider . . "Provider Documentation" section prepared by Shan Kraft. . VTE Core Measure Inpt VTE Proph given/why not?: SCD's, Contraindicated
--- NOTE | 2017-07-05 19:32 | Progress Note ---
Internal Med Progress Note Date of Service: Jul 05, 2017. Provider Documentation: SUBJECTIVE: resting comfortably still has bloody bowel movements on and off eating fine 'ambulating fine ok to go home and followup as outpatient OBJECTIVE: Vital Signs-as noted below Exam: General-alert and oriented. Not in distress ENT-normal hearing Neck-no neck masses Lungs-cta b/l no wheezing or crackles Heart-s1 and s2 heard regular rhythm, no murmurs Abdomen-soft bowel sounds present non tender no distension Extremities no edema no erythema Neuro-alert and oriented moves extremities Lab data as noted below. ASSESSMENT & PLAN: 76 yo M with h/o prostate cancer s/p XRT with subsequent radiation proctitis and a recent h/o c-diff with no improvement in diarrhea, who presents with symptomatic anemia. 1. Symptomatic anemia-likely 2/2 acute blood loss and anemia of chronic inflammation with ongoing proctitis. HOLDING ASPIRIN RECEIVED TWO UNITS PRBC HB 9.2 TODAY gi planned for Cortenema BID but was stopped as c diff was positive. plan egd/colonoscopy as out patient h and h been stable f/u with GI as out patient as planned 2. Diarrhea in setting of recently treated c-diff infection with no initial resolution of the diarrhea after 14-days of oral vancomycin. c diff posive started on po vancomycin- will do 6 week taper course.f/u with pcp 3. DMII-controlled, ISS with carb coverage and Lantus. Will monitor. 4. MORRO on CKD Stage III with baseline creat 1.6-1.8-- presented with cr 2.1 cr 1.6 today. 5. h/o prostate cancer s/p XRT-completed 44 cycles XRT in Dec 2015 6. HTN-on low dose lisinopril, holding to avoid hypotension in setting of anemia. 7. HLPOn statin therapy Discharged home Vital Signs: Date Time Temp Pulse Resp B/P (MAP) Pulse Ox O2 Delivery O2 Flow Rate FiO2 07/05/17 15:00 36.8 82 18 99 Room Air 07/05/17 12:00 Room Air 07/05/17 11:29 36.8 82 18 111/72 (85) 99 Room Air 07/05/17 08:00 Room Air 07/05/17 07:34 107 18 96/62 (73) 97 Room Air 07/05/17 07:32 77 18 123/76 (92) 99 Room Air 07/05/17 07:29 36.8 69 19 120/73 (89) 100 Room Air 07/05/17 04:16 36.5 65 18 153/79 (103) 99 Room Air 07/05/17 04:00 Room Air 07/05/17 00:00 36.8 77 19 141/85 (103) 98 Room Air 76 128/75 (92) 83 107/70 (82) 07/04/17 23:59 Room Air 07/04/17 20:00 Room Air Lab Results: Results Past 24 Hours Test 07/04/17 20:37 07/05/17 05:49 07/05/17 06:45 07/05/17 11:15 Range/Units Bedside Glucose 182 93 176 70-99 mg/dl White Blood Count 4.17 4.8-10.8 K/uL Red Blood Count 3.07 4.7-6.1 M/uL Hemoglobin 9.2 14.0-18.0 g/dL Hematocrit 28.2 42-52 % Mean Corpuscular Volume 91.9 80-100 fL Mean Corpuscular Hemoglobin 30.0 25-34 pg Mean Corpuscular Hemoglobin Concent 32.6 32-36 g/dl Platelet Count 307 130-400 K/uL Mean Platelet Volume 8.7 7.4-10.4 fL Neutrophils (%) (Auto) 53.4 % Lymphocytes (%) (Auto) 26.9 % Monocytes (%) (Auto) 13.2 % Eosinophils (%) (Auto) 5.8 % Basophils (%) (Auto) 0.7 % Neutrophils # (Auto) 2.23 1.4-6.5 K/uL Lymphocytes # (Auto) 1.12 1.2-3.4 K/uL Monocytes # (Auto) 0.55 0.11-0.59 K/uL Eosinophils # (Auto) 0.24 0-0.5 K/uL Basophils # (Auto) 0.03 0-0.2 K/uL RDW Standard Deviation 49.1 36.4-46.3 fL RDW Coefficient of Variation 14.6 11.5-14.5 % Immature Granulocyte % (Auto) 0.0 % Immature Granulocyte # (Auto) 0.00 0.00-0.02 K/uL Sodium Level 141 136-145 mmol/L Potassium Level 4.5 3.5-5.1 mmol/L Chloride Level 109 98-107 mmol/L Carbon Dioxide Level 28 21-32 mmol/L Anion Gap 4.0 3-11 mmol/L Blood Urea Nitrogen 23 7-18 mg/dl Creatinine 1.60 0.60-1.40 mg/dl Est Creatinine Clear Calc Drug Dose 37.9 ml/min Estimated GFR () 48.5 Estimated GFR (Non- 41.8 BUN/Creatinine Ratio 14.2 10-20 Random Glucose 86 70-99 mg/dl Calcium Level 8.5 8.5-10.1 mg/dl Magnesium Level 2.1 1.8-2.4 mg/dl
--- NOTE | 2017-07-05 19:34 | Discharge Summary ---
Discharge Summary Date of Service Jul 05, 2017. Discharge Summary Admission Date: Jul 02, 2017 at 18:19 Discharge Date: Jul 05, 2017 Discharge Disposition: Home Principal Diagnosis: ANEMIA GI BLEED Secondary Diagnoses/Problems: (1) Anemia Status: Chronic (2) CKD (chronic kidney disease), stage III Permanent Comment: baseline creat 1.6-1.8 Status: Chronic (3) Diabetes Status: Chronic (4) H/O Clostridium difficile infection Status: Chronic (5) Prostate cancer Permanent Comment: DIAGNOSIS: Prostate, adenocarcinoma, bin 4 + 5, PSA 97.57 , [id number], group IV Initiation of hormonal suppression 09/16/2015 Status post completion of radiation therapy utilizing IMRT/IGRT completed 2015 received 7920 cGy Status: Chronic (6) Radiation proctitis Status: Chronic (7) Symptomatic anemia Status: Resolved Procedures: CXR: Prior granulomatous disease without acute cardiopulmonary process. The above report was generated using voice recognition software. It may contain grammatical, syntax or spelling errors. Consultations: GI Medication Reconciliation New Medications: Vancomycin Hcl (Vancomycin) 125 Mg Cap 125 MG PO QID, #102 VANCOMYCIN 125MG PO FOUR TIMES DAILY X 2 WEEKS THEN VANCOMYCIN 125MG PO THREE TIMES DAILY X 1 WEEK THEN VANCOMYCIN 125MG PO TWO TIMES DAILY X 1 WEEK THEN VANCOMYCIN 125MG PO ONE TIMES DAILY X 1 WEEK THEN VANCOMYCIN 125MG PO EVERY OTHER DAY X 1 WEEK THEN STOP. Continued Medications: Insulin Glargine (Lantus) 100 Unit/Ml Inj 20 UNITS SC HS Lisinopril (Zestril) 2.5 Mg Tab Multiple Vitamin (Multi Vitamin Daily) 1 Tab Tab 1 TAB PO DAILY Simvastatin (Zocor) 40 Mg Tab 1 TAB PO DAILY for 90 Days, #90 TAB 1 Refill Discontinued Medications: Aspirin (Aspirin 81) 81 Mg Tab 1 TAB PO DAILY Admission Information HPI (per Admitting provider): 76 yo M with h/o prostate cancer who underwent 44 cycles of XRT with last dose Dec 2015. He was subsequently diagnosed with radiation proctitis April 2017 when he arrived with profound anemia to the ER. During this last admission to the hospital he was treated for c-diff diarrhea (14 days vanc given total), transfused 6 units of blood (admission Hb was 3.9) and underwent a colonoscopy by Dr. Gutierrez revealing a polyp and finding a normal terminal ileum, a 6mm sessile polyp in the ascending colon, many diverticula, and findings consistent with radiation colitis. He underwent coagulation for hemostasis using argon plasma. Since leaving the hospital he reports having persistent diarrhea and bleeding roughly 3-4 times per week. Only in the last week did he notice the severity of bleeding increase. He also began having lightheadedness and significant fatigue which prompted a repeat H/H outpatient lab. On April 20 ( post-dc) his H/H was 10.1/32.2. Repeat check today revealed 6.5/20.6. He is currently receiving blood in the ER. He denies abdominal pain, chest pain or shortness of breath. He denies any nausea, vomiting, or intolerance of food. No headache, fevers, chills or bruising. Physical Exam (per Admitting): GEN: WNWD, in no acute distress, alert and appropriate HEENT: NC/AT, normal sclerae, MMM, trachea midline CARDIO: reg rate, S1/2 heard without m/g/r LUNGS: CTA bilaterally, no crackles, rales or wheezes, good diaphragmatic excursion ABD: soft, non-tender, non-distended, no rebound or guarding, +BS EXTREMITY: RP and DP palpable 2+ bilat, no LE swelling or edema, extremities are warm and well-perfused NEURO: CN 2-12 grossly intact, sensation intact throughout, no gross focal deficits. MUSC: 5/5 strength throughout, no focal deficits SKIN: warm and dry Hospital Course 76 yo M with h/o prostate cancer s/p XRT with subsequent radiation proctitis and a recent h/o c-diff with no improvement in diarrhea, who presents with symptomatic anemia. 1. Symptomatic anemia-likely 2/2 acute blood loss and anemia of chronic inflammation with ongoing proctitis. HOLDING ASPIRIN RECEIVED TWO UNITS PRBC HB 9.2 TODAY gi planned for Cortenema BID but was stopped as c diff was positive. plan egd/colonoscopy as out patient h and h been stable f/u with GI as out patient as planned 2. Diarrhea in setting of recently treated c-diff infection with no initial resolution of the diarrhea after 14-days of oral vancomycin. c diff posive started on po vancomycin- will do 6 week taper course.f/u with pcp 3. DMII-controlled, ISS with carb coverage and Lantus. Will monitor. 4. MORRO on CKD Stage III with baseline creat 1.6-1.8-- presented with cr 2.1 cr 1.6 today. 5. h/o prostate cancer s/p XRT-completed 44 cycles XRT in Dec 2015 6. HTN-on low dose lisinopril, holding to avoid hypotension in setting of anemia. 7. HLPOn statin therapy Discharged home Total time spent on discharge = 35MINUTES This includes examination of the patient, discharge planning, medication reconciliation, and communication with other providers. Discharge Instructions Discharge Instructions Date of Service Jul 05, 2017. Admission Reason for Admission: Anemia Discharge Discharge Diagnosis / Problem: anemia. gi bleed. c diff Discharge Goals Goal(s): Decrease discomfort, Improve function Activity Recommendations Activity Limitations: resume your previous activity . Instructions / Follow-Up Instructions / Follow-Up FOLLOWUP WITH FAMILY DOCTOR ON AT 2PM. FOLLOWUP WITH GI FOR EGD AND COLONOSCOPY. TO HOLD ASPIRIN UNTIL OK TO RESTART BY FAMILY DOCTOR AND GI LAB: CBC IN 4-5 DAYS AND FOLLOW RESULTS WITH FAMILY DOCTOR. Current Hospital Diet Patient's current hospital diet: Diabetes Type 2 Diet Discharge Diet Recommended Diet: Diabetes Type 2 Diet Pending Studies Studies pending at discharge: no Medical Emergencies . Who to Call and When: Medical Emergencies: If at any time you feel your situation is an emergency, please call 911 immediately. . Non-Emergent Contact Non-Emergency issues call your: Primary Care Provider . . "Provider Documentation" section prepared by Shan Kraft. . VTE Core Measure Inpt VTE Proph given/why not?: SCD's, Contraindicated
[2017-07-09] MEDS ORDERED: VANC5CAP PO (14:59)
[2017-07-09] MEDS ORDERED: ASPI81TA28 PO (14:59)
== END 2017-07-05 15:30 | disposition home or self-care (01) | DRG 812 ==
LOC: C.EDB 16:00 → UNDOADMIN 18:19 → C.2T 18:19 → ENRESERV 18:47
PROVIDERS: ADMIT Hospitalist; ATTEND Internal Medicine
DX: D62 Acute posthemorrhagic anemia (principal); K62.5 Hemorrhage of anus and rectum; N17.9 Acute kidney failure, unspecified; K62.7 Radiation proctitis; Z83.3 Family history of diabetes mellitus; Z80.1 Family history of malignant neoplasm of trachea, bronchus and lung; I12.9 Hypertensive chronic kidney disease with stage 1 through stage 4 chronic kidney disease, or unspecified chronic kidney disease; E78.5 Hyperlipidemia, unspecified; E11.22 Type 2 diabetes mellitus with diabetic chronic kidney disease; Z85.46 Personal history of malignant neoplasm of prostate; N18.3 Chronic kidney disease, stage 3 (moderate)

== ENCOUNTER → 2017-07-14 | Day surgery (SDC) | payer OTHER ==
[2017-07-09 15:04] VITALS: Ht 180.3 cm; Wt 68.2 kg
[~2017-07-14] VITALS: Ht 180.3 cm; Wt 68.2 kg
[~2017-07-14] MED LIST changes: -ASPI-435 PO; +ASPI81TA28 PO; -FRRS300 PO; -LCTX PO; +LIDOCAINE HCL 2% 2 ML VIAL (20MG/ML) ONE; -LISI-729 PO; +LISI-789 PO; +ONDANSETRON INJ 2 MG/ML 2 ML VIAL IV PRN; +PROPOFOL IV EMULSION 10 MG/ML 20 ML VIAL IV ONE; +VANC5CAP PO; -VNCS125 PO
[2017-07-14 12:20] VITALS: TEMP 36.6
--- NOTE | 2017-07-14 12:44 | Endo History and Physical ---
History & Physical Date of Service: Jul 14, 2017. Chief Complaint: anemia Referring Physician: Dr. Jerry Cardenas History of Present Illness Patient with a history of anemia presenting for repeat colonoscopy and upper endoscopy today for evaluation of suspected AVMs. He denies having difficulty swallowing or pain with swallowing. He denies having any gross blood per rectum or dark sticky stools. The patient does have intermittent diarrhea followed by constipation and is thought to have irritable bowel syndrome. Past Medical History Diabetes, Cancer, Kidney Disease Past Surgical History Hx Cardiac Surgery: No Hx Internal Defibrillator: No Hx Pacemaker: No Hx Abdominal Surgery: No Hx of Implantable Prosthesis: No Hx Post-Op Nausea and Vomiting: No Hx Cancer Surgery: No Hx Thoracic Surgery: No Hx Orthopedic: No Hx Urinary Tract Surgery: No Family History None Social History Smoking Status: Never Smoker Hx Substance Use: No Hx Alcohol Use: No Allergies Coded Allergies: No Known Allergies (Verified , 07/14/17) Current Medications Reported Home Medications Medications Dose Route/Sig Max Daily Dose Days Date Category Aspirin Ec (Aspirin) 81 Mg Tab 81 Mg PO QAM 07/09/17 Reported Vancomycin (Vancomycin HCl) 125 Mg Cap 1 Tab PO QID 07/09/17 Reported Zestril (Lisinopril) 2.5 Mg Tab 1 Tab PO QAM 07/02/17 Reported Lantus (Insulin Glargine) 100 Unit/Ml Inj 20 Units SC HS 09/13/15 Reported Zocor (Simvastatin) 40 Mg Tab 1 Tab PO QPM 09/13/15 Reported Multi Vitamin Daily (Multiple Vitamin) 1 Tab Tab 1 Tab PO QAM 09/13/15 Reported Vital Signs Weight (Kilograms): 68.18 Height (Feet): 5 Height (Inches): 11 Date Time Temp Pulse Resp B/P (MAP) Pulse Ox O2 Delivery O2 Flow Rate FiO2 07/14/17 12:20 36.6 78 20 142/71 (94) 100 Room Air Physical Exam General Appearance: no apparent distress Respiratory/Chest: Auscultation: breath sounds normal Cardiovascular: Heart Auscultation: RRR Abdomen: Inspection & Palpation: soft Assessment and Plan EGD and colonoscopy for evaluation of anemia. We've discussed the risks to include bleeding, infection, perforation and need for follow-up studies.
--- NOTE | 2017-07-14 13:32 | Discharge Instructions ---
Endoscopy Patient Instructions Date / Procedure(s) Performed Jul 14, 2017. Colonoscopy, EGD Allergy Information Coded Allergies: No Known Allergies (Verified , 07/14/17) Discharge Date / Findings Jul 14, 2017. Normal upper endoscopy Radiation proctitis Internal hemorrhoids Diverticulosis Medication Instructions Stopped Medication(s): stopped ASA 10 days to 2 weeks ago Reported Home Medications Medications Dose Route/Sig Max Daily Dose Days Date Category Aspirin Ec (Aspirin) 81 Mg Tab 81 Mg PO QAM 07/09/17 Reported Vancomycin (Vancomycin HCl) 125 Mg Cap 1 Tab PO QID 07/09/17 Reported Zestril (Lisinopril) 2.5 Mg Tab 1 Tab PO QAM 07/02/17 Reported Lantus (Insulin Glargine) 100 Unit/Ml Inj 20 Units SC HS 09/13/15 Reported Zocor (Simvastatin) 40 Mg Tab 1 Tab PO QPM 09/13/15 Reported Multi Vitamin Daily (Multiple Vitamin) 1 Tab Tab 1 Tab PO QAM 09/13/15 Reported Provider Instructions Activity Restrictions - No exercising or heavy lifting for 24 hours. - Do not drink alcohol the day of the procedure. - Do not drive a car or operate machinery until the day after the procedure. - Do not make any important decisions or sign important papers in 24 hours after the procedure. Following Day: - Return to full activity which may include returning to work/school. Diet Start your diet with liquids and light foods (jello, soup, juice, toast). Then eat your usual diet if not nauseated. Treatment For Common After Affects For mild abdominal pain, bloating, or excessive gas: - Rest - Eat lightly - Lie on right side Follow-Up Information Begin an iron supplement twice daily for 6 weeks then 1 time daily thereafter Canasa suppository at bedtime for 4 weeks then every other night Clinic follow-up in 6-8 weeks Anesthesia Information What You Should Know You have had a procedure that required some medicine to reduce anxiety and discomfort. This treatment is called moderate sedation. After receiving the treatment, you may be sleepy, but you will be able to breathe on your own. The effects of the treatment may last for several hours. Follow these instructions along with Activity/Diet recommendations noted above: * Do NOT do anything where dizziness or clumsiness would be dangerous. * Rest quietly at home today, then you can be up and about tomorrow. * Have a responsible person stay with you the rest of today. * You may have had an I.V. today. If so, you may take the dressing off later today. Recommendations Call your doctor if: * Trouble breathing * Continuous vomiting for more than 24 hours * Temperature above 101 degrees * Severe abdominal pain or bloating * Pain not relieved by pain medicine ordered * There is increased drainage or redness from any incision * A large amount of rectal bleeding greater than 2-3 tablespoons. (If you had a polyp/s removed or have hemorrhoids, a small amount of blood - from the rectum is to be expected.) * You have any unanswered questions or concerns. IN THE EVENT OF A SERIOUS EMERGENCY, GO TO THE NEAREST EMERGENCY ROOM Your discharge instructions were prepared by provider Caden Gutierrez. Patient Instructions Signature Page Héctor Orosco Patient (or Guardian) Signature/Date: I have read and understand the instructions given to me by my caregivers. Caregiver/RN/Doctor Signature/Date: The above-named patient and/or guardian has received patient instructions on this date. + Original Patient Signature Page (only) stays with chart. Please make copy for patient.
--- NOTE | 2017-07-14 13:34 | GI REPORT ---
Procedure Date: 07/14/2017 12:54 PM Procedure: Upper GI endoscopy Indications: Iron deficiency anemia Medicines: Monitored Anesthesia Care Complications: No immediate complications. Estimated blood loss: Minimal. Estimated Blood Loss: Estimated blood loss: Minimal. Estimated blood loss was minimal. Procedure: Pre-Anesthesia Assessment: - Prior to the procedure, a History and Physical was performed, and patient medications, allergies and sensitivities were reviewed. The patient's tolerance of previous anesthesia was reviewed. - The risks and benefits of the procedure and the sedation options and risks were discussed with the patient. All questions were answered and informed consent was obtained. - Patient identification and proposed procedure were verified prior to the procedure by the physician, the nurse and the wastewater treatment plant operator. The procedure was verified in the procedure room. - Pre-procedure physical examination revealed no contraindications to sedation. - ASA Grade Assessment: III - A patient with severe systemic disease. - After reviewing the risks and benefits, the patient was deemed in satisfactory condition to undergo the procedure. - The anesthesia plan was to use monitored anesthesia care (MAC). - Immediately prior to administration of medications, the patient was re-assessed for adequacy to receive sedatives. - The heart rate, respiratory rate, oxygen saturations, blood pressure, adequacy of pulmonary ventilation, and response to care were monitored throughout the procedure. - The physical status of the patient was re-assessed after the procedure. After obtaining informed consent, the endoscope was passed under direct vision. Throughout the procedure, the patient's blood pressure, pulse, and oxygen saturations were monitored continuously. The On-site loaner was introduced through the mouth, and advanced to the third part of duodenum. The upper GI endoscopy was accomplished without difficulty. The patient tolerated the procedure well. Findings: The examined esophagus was normal. The entire examined stomach was normal. The examined duodenum was normal. Biopsies for histology were taken with a cold forceps for evaluation of celiac disease. Estimated blood loss was minimal. Impression: - Normal esophagus. - Normal stomach. - Normal examined duodenum. Biopsied. Recommendation: - Perform a colonoscopy today. - Await pathology results. Caden Gutierrez D.O. Caden Gutierrez DO 07/14/2017 1:34:17 PM This report has been signed electronically. Note Initiated On: 07/14/2017 12:54 PM I attest to the content of the Intraoperative Record and orders documented therein, exceptions below
--- NOTE | 2017-07-14 13:39 | GI REPORT ---
Procedure Date: 07/14/2017 12:53 PM Procedure: Colonoscopy Indications: Hematochezia Medicines: Monitored Anesthesia Care Complications: No immediate complications. Estimated blood loss: Minimal. Estimated Blood Loss: Estimated blood loss was minimal. Procedure: Pre-Anesthesia Assessment: - Prior to the procedure, a History and Physical was performed, and patient medications, allergies and sensitivities were reviewed. The patient's tolerance of previous anesthesia was reviewed. - The risks and benefits of the procedure and the sedation options and risks were discussed with the patient. All questions were answered and informed consent was obtained. - Patient identification and proposed procedure were verified prior to the procedure by the physician, the nurse and the auto damage insurance appraiser. The procedure was verified in the procedure room. - Pre-procedure physical examination revealed no contraindications to sedation. - ASA Grade Assessment: III - A patient with severe systemic disease. - After reviewing the risks and benefits, the patient was deemed in satisfactory condition to undergo the procedure. - The anesthesia plan was to use monitored anesthesia care (MAC). - Immediately prior to administration of medications, the patient was re-assessed for adequacy to receive sedatives. - The heart rate, respiratory rate, oxygen saturations, blood pressure, adequacy of pulmonary ventilation, and response to care were monitored throughout the procedure. - The physical status of the patient was re-assessed after the procedure. After I obtained informed consent, the scope was passed under direct vision. Throughout the procedure, the patient's blood pressure, pulse, and oxygen saturations were monitored continuously. The scope was introduced through the anus and advanced to the cecum, identified by appendiceal orifice and ileocecal valve. The colonoscopy was performed without difficulty. The patient tolerated the procedure well. The quality of the bowel preparation was adequate to identify polyps 6 mm and larger in size. Findings: The perianal and digital rectal examinations were normal. Pertinent negatives include normal sphincter tone. Many small-mouthed diverticula were found in the sigmoid colon and in the descending colon. Internal hemorrhoids were found during retroflexion. The hemorrhoids were mild. Multiple small localized angiodysplastic lesions with bleeding on contact were found in the rectum. Coagulation for hemostasis using argon plasma at 1.2 liters/minute and 30 shaffer was successful. Estimated blood loss was minimal. The exam was otherwise without abnormality. Impression: - Mild diverticulosis in the sigmoid colon and in the descending colon. - Internal hemorrhoids. - Multiple colonic angiodysplastic lesions consistent with radiation proctitis. Treated with argon plasma coagulation (APC). - The examination was otherwise normal. - No specimens collected. Recommendation: - Discharge patient to home (ambulatory). - Advance diet as tolerated today. - Use Canasa 1000 mg suppository 1 per rectum QHS. - Begin an Iron supplement 2 times daily for 6 weeks then 1 time daily - Clinic follow-up in 3 monthsl - Repeat colonoscopy in 5 years Caden Gutierrez D.O. Caden Gutierrez, 07/14/2017 1:38:38 PM This report has been signed electronically. Note Initiated On: 07/14/2017 12:53 PM I attest to the content of the Intraoperative Record and orders documented therein, exceptions below
[2017-07-14 13:59] VITALS: BP 117/71; PULSE 70; O2SAT 100
--- NOTE | 2017-07-14 14:21 | Anesthesiology Progress Note ---
Anesthesia Post Op Note Date & Time Jul 14, 2017 at 14:21 Vital Signs Pain Intensity: 0 Vital Signs Past 12 Hours Date Time Temp Pulse Resp B/P (MAP) Pulse Ox O2 Delivery O2 Flow Rate FiO2 07/14/17 13:59 70 18 117/71 (86) 100 Room Air 07/14/17 13:44 66 20 106/62 (77) 100 Room Air 07/14/17 13:29 68 20 93/57 (69) 100 Room Air 07/14/17 12:20 36.6 78 20 142/71 (94) 100 Room Air Notes Mental Status: alert / awake / arousable, participated in evaluation Pt Amnestic to Procedure: Yes Nausea / Vomiting: adequately controlled Pain: adequately controlled Airway Patency, RR, SpO2: stable & adequate BP & HR: stable & adequate Hydration State: stable & adequate Anesthetic Complications: no major complications apparent
== END | disposition home or self-care (01) ==
LOC: C.GI 11:40 → EDSTATUS 12:30
PROVIDERS: ATTEND Internal Medicine Gastroenterology
DX: D50.9 Iron deficiency anemia, unspecified (principal); K92.1 Melena; K63.89 Other specified diseases of intestine; K57.30 Diverticulosis of large intestine without perforation or abscess without bleeding; K64.8 Other hemorrhoids; E11.9 Type 2 diabetes mellitus without complications; N28.9 Disorder of kidney and ureter, unspecified; Z79.82 Long term (current) use of aspirin; I10 Essential (primary) hypertension; E78.5 Hyperlipidemia, unspecified; M19.90 Unspecified osteoarthritis, unspecified site; Z79.4 Long term (current) use of insulin; Z85.46 Personal history of malignant neoplasm of prostate; B96.89 Other specified bacterial agents as the cause of diseases classified elsewhere